=== PATIENT | female | born 1970 | race Caucasian/White ===

== ENCOUNTER → 2016-09-23 | Emergency (ER) | payer OTHER ==
[~2016-09-23] MED LIST: DEXTROSE 5%-0.45% SALINE 1,000 ML IV SCH; OXYCODONE/APAP 5/325MG COMBO TABLET PO ONE; SODIUM CHLORIDE 1,000 ML IV SCH; VANCOMYCIN 1 GRAM (PRE-DOCKED) 250 ML IVPB ONE; VANCOMYCIN 1,000 MG in DEXTROSE 5%-WATER - 250 ML IVPB ONE; morphine CARPU-JECT 4 MG/1 ML DISP.SYRIN IVPUSH ONE; morphine CARPU-JECT 4 MG/1 ML DISP.SYRIN IVPUSH PRN; morphine CARPU-JECT 4 MG/1 ML DISP.SYRIN ONE
[2016-09-23 17:11] VITALS: BMI 28.3
--- NOTE | 2016-09-23 18:23 | PDOC ---
History of Present Illness - General History Source: Patient, Old Records Exam Limitations: No Limitations - History of Present Illness Initial Comments: 09/23/16 18:44 The patient is a 46 year old female, with a significant past medical history of MRSA and anxiety, who presents to the emergency department with an abscess of the right axilla and an abscess of the left antecubital fossa for the past 2 days. The patient states that the abscesses have become increasingly painful, worst an hour prior to presentation to the ED. She presents to the ED now because the pain has become too unbearable. The patient states that she has had abscesses in the past, but states that she does not know why she keeps experiencing recurrent abscesses. The patient denies fever, chills, nausea, vomiting, diarrhea or dysuria. Allergies: Celecoxib Past Surgical History: Appendectomy (1999). Social History: Current everyday smoker. History of previous drug use (heroin, benzodiazepines). PCP: Dr. Viveros <Judith Olivares - Last Filed: 09/23/16 21:22> <Johnathan Bass - Last Filed: 09/24/16 15:59> - General Chief Complaint: Abscess Boil Stated Complaint: ABCESS Past History <Jduith Olivares - Last Filed: 09/23/16 21:22> - Past Medical History Asthma: No Cardiac Disorders: No COPD: No Diabetes: No GI Disorders: No Disorders: No HTN: No Kidney Stones: Yes (1998) Psychiatric Problems: Yes (anxiety) Suicide Attempt (Hx): No Seizures: No Other medical history: mrsa - Surgical History Abdominal Surgery: No Appendectomy: Yes (1999) Cardiac Surgery: No Cholecystectomy: No Lung Surgery: No Neurologic Surgery: No Orthopedic Surgery: No - Reproductive History PID: No - Immunization History Immunization Up to Date: Yes - Psycho/Social/Smoking Cessation Hx Anxiety: Yes Suicidal Ideation: No Smoking History: Current every day smoker Have you smoked in the past 12 months: Yes Number of Cigarettes Smoked Daily: 20 Information on smoking cessation initiated: No 'Breaking Loose' booklet given: 07/26/16 Hx Alcohol Use: No Drug/Substance Use Hx: No Substance Use Type: Heroin, Tranquilizers Hx Substance Use Treatment: No <Johnathan Bass - Last Filed: 09/24/16 15:59> - Past Medical History Allergies/Adverse Reactions: Allergies Allergy/AdvReac Type Severity Reaction Status Date / Time celecoxib [From Celebrex] Allergy Severe Hives Verified 09/23/16 17:07 Home Medications: Ambulatory Orders Clindamycin [Cleocin -] 300 mg PO TID #21 capsule 09/23/16 Oxycodone HCl/Acetaminophen [Percocet 5-325 mg Tablet] 1 - 2 tab PO Q6H PRN #20 tab MDD 8 09/23/16 Sulfamethoxazole/Trimethoprim [Bactrim Ds -] 1 tab PO BID #10 tablet 09/24/16 Review of Systems - Review of Systems Able to Perform ROS?: Yes Comments:: 09/23/16 18:30 GENERAL/CONSTITUTIONAL: No fever or chills. No weakness. HEAD, EYES, EARS, NOSE AND THROAT: No change in vision. No ear pain or discharge. No sore throat. CARDIOVASCULAR: No chest pain or shortness of breath. RESPIRATORY: No cough, wheezing, or hemoptysis. GASTROINTESTINAL: No nausea, vomiting, diarrhea or constipation. GENITOURINARY: No dysuria, frequency, or change in urination. MUSCULOSKELETAL: No joint or muscle swelling or pain. No neck or back pain. SKIN: +Abscess of the right axilla, abscess of the left antecubital fossa. NEUROLOGIC: No headache, vertigo, loss of consciousness, or change in strength/ sensation. ENDOCRINE: No increased thirst. No abnormal weight change. HEMATOLOGIC/LYMPHATIC: No anemia, easy bleeding, or history of blood clots. ALLERGIC/IMMUNOLOGIC: No hives or skin allergy. <Judith Olivares - Last Filed: 09/23/16 21:22> *Physical Exam - Vital Signs Last Vital Signs Temp Pulse Resp BP Pulse Ox 98 F 115 H 20 132/80 97 09/23/16 17:09 09/23/16 17:09 09/23/16 17:09 09/23/16 17:09/23/16 17:09 - Physical Exam Comments: 09/23/16 18:54 GENERAL: Awake, alert, and fully oriented, in no acute distress. HEAD: No signs of trauma. EYES: PERRLA, EOMI, sclera anicteric, conjunctiva clear. ENT: Auricles normal inspection, hearing grossly normal, nares patent, oropharynx clear without exudates. Moist mucosa. NECK: Normal ROM, supple, no lymphadenopathy, JVD, or masses. LUNGS: Breath sounds equal, clear to auscultation bilaterally. No wheezes, and no crackles. HEART: Regular rate and rhythm, normal S1 and S2, no murmurs, rubs or gallops. ABDOMEN: Soft, nontender, normoactive bowel sounds. No guarding, no rebound. No masses. EXTREMITIES: Normal range of motion, no edema. No clubbing or cyanosis. No cords , erythema, or tenderness. NEUROLOGICAL: Cranial nerves II through XII grossly intact. Normal speech, normal gait. SKIN: Left antecubital fossa, there is an area of induration and tenderness, no fluctuance. Right axilla, there is an area of induration and tenderness, no fluctuance. <Judith Olivares - Last Filed: 09/23/16 21:22> - Vital Signs Last Vital Signs Temp Pulse Resp BP Pulse Ox 98 F 115 H 20 132/80 97 09/23/16 17:09 09/23/16 17:09 09/23/16 17:09 09/23/16 17:09 09/23/16 17:09 <Johnathan Bass - Last Filed: 09/24/16 15:59> ED Treatment Course - LABORATORY CBC & Chemistry Diagram: 09/23/16 19:20 09/23/16 19:20 <Judith Olivares - Last Filed: 09/23/16 21:22> - LABORATORY CBC & Chemistry Diagram: 09/23/16 19:20 09/23/16 19:20 - RADIOLOGY Comments: Patient is refusing admission but wants the proceedure. <Johnathan Bass - Last Filed: 09/24/16 15:59> Medical Decision Making - Medical Decision Making 09/23/16 21:05 EXAM: US/SOFT TISSUE EXTREMITY US Reviewed By: Dr. Dylan Lino IMPRESSION: Nonspecific complex 1.9 x 1.9 x 1.1 cm left elbow region subcutaneous structure medially as discussed. Ultrasound or CT-guided percutaneous needle aspiration/biopsy may be considered. The right axillary region demonstrates no sonographic pathology. Additional imaging evaluation may be performed as clinically indicated. Case discussed with Dr. Rodriguez (Radiology) at 21:05. Dr. Rodriguez will perform an ultrasound guided aspiration tomorrow morning at 8AM. The patient will be NPO after midnight. The patient is refusing admission at this time. <Judith Olivares - Last Filed: 09/23/16 21:22> *DC/Admit/Observation/Transfer - Attestations Scribe Attestion: 09/23/16 18:26 Documentation prepared by Judith Olivares, acting as medical detail representative for Johnathan Bass MD, /DO. <Judith Olivares - Last Filed: 09/23/16 21:22> - Discharge Dispostion Admit: No <Johnathan Bass - Last Filed: 09/24/16 15:59> Diagnosis at time of Disposition: Abscess of elbow - Discharge Dispostion Disposition: HOME Condition at time of disposition: Improved - Prescriptions Prescriptions: Sulfamethoxazole/Trimethoprim [Bactrim Ds -] 1 tab PO BID #10 tablet Clindamycin [Cleocin -] 300 mg PO TID #21 capsule Oxycodone HCl/Acetaminophen [Percocet 5-325 mg Tablet] 1 - 2 tab PO Q6H PRN #20 tab MDD 8 PRN Reason: Pain - Referrals Referrals: Gali Viveros [Primary Care Provider] - - Patient Instructions Printed Discharge Instructions: DI for Incision and Drainage of a Skin Abscess Additional Instructions: Return to the emergency department immediately with ANY new, persistent or worsening symptoms including any worsening pain, fever/chills redness, or any other concerns. You MUST call and follow up with your doctor within 2-3 days for further evaluation of your symptoms. Results were discussed with you. Please make sure your doctor reviews the results of your emergency evaluation. Print Language: PANAMANIAN
[2016-09-23 19:31] LABS: BASOPHIL 0.8 % (0-2.0); EOSINOPHIL 5.9 % (0-4.5); MCH 29.3 pg (25.7-33.7); MCHC 33.1 g/dl (32.0-36.0); MEAN CELL VOLUME 88.6 fl (80-96); MEAN PLT VOLUME 8.9 fl (7.5-11.1); NEUTROPHILS 52.5 % (42.8-82.8); PLATELET COUNT 282 K/MM3 (134-434); RDW 14.4 % (11.6-15.6)
[2016-09-23 20:06] LABS: ANION GAP 6 (8-16); BILIRUBIN,TOTAL 0.3 mg/dL (0.2-1.0); CALCIUM 9.4 mg/dL (8.5-10.1); CO2 31 mmol/L (21-32); CREATININE 0.6 mg/dL (0.55-1.02); GLUCOSE,RANDOM 91 mg/dL (74-106); SGOT/AST 27 U/L (15-37); SGPT/ALT 44 U/L (12-78); TOT PROT 7.4 g/dl (6.4-8.2)
[2016-09-23 20:07] LABS: ALK PHOS 98 U/L (45-117)
[2016-09-23 21:01] LABS: URINE APPEARANCE CLEAR; URINE BILIRUBIN NEGATIVE (NEGATIVE); URINE COLOR STRAW; URINE GLUCOSE (UA) NEGATIVE (NEGATIVE); URINE KETONE NEGATIVE (NEGATIVE); URINE NITRITE NEGATIVE (NEGATIVE); URINE PROTEIN NEGATIVE (NEGATIVE); URINE UROBILINOGEN NEGATIVE E.U./dl (0.2-1.0)
[2016-09-23 21:02] LABS: URINE BLOOD 1+ (NEGATIVE); URINE LEUK ESTERASE TRACE (NEGATIVE)
[2016-09-23 21:05] LABS: URINE RBC 1 /hpf (0-3); URINE WBC 3 /hpf (3-5)
[2016-09-23 21:10] LABS: URINE MARIJUANA THC NEGATIVE ng/ml (CUTOFF=50)
[2016-09-24 14:22] VITALS: BP 122/82; PULSE 84; TEMP 98.2
--- NOTE | 2016-09-24 15:14 | PDOC ---
*Physical Exam - Vital Signs Last Vital Signs Temp Pulse Resp BP Pulse Ox 98.2 F 84 16 122/82 99 09/24/16 14:21 09/24/16 14:21 09/24/16 14:21 09/24/16 14:21 09/24/16 14:21 ED Treatment Course - LABORATORY CBC & Chemistry Diagram: 09/23/16 19:20 09/23/16 19:20 - ADDITIONAL ORDERS Additional order review: 09/24/16 12:52 Gram Stain - Final Abscess 09/24/16 12:45 ARCELIA Preparation - Preliminary Abscess Fungal Culture - Preliminary 09/23/16 19:20 RBC 4.75 MCV 88.6 MCHC 33.1 RDW 14.4 MPV 8.9 Neutrophils % 52.5 D Lymphocytes % 36.0 D Monocytes % 4.8 Eosinophils % 5.9 H D Basophils % 0.8 - RADIOLOGY Radiology Studies Ordered: Category Date Time Status ABCESS/FLUID DRAIN-SUPERFICIAL [RADS] Stat Radiology 09/24/16 08:54 Ordered Comments: Patient is refusing admission but wants the proceedure. - Medications Given in the ED: ED Medications Discontinued Medications Generic Name Dose Route Start Last Admin Trade Name Freq PRN Reason Stop Dose Admin Vancomycin HCl 1,000 mg/ 250 mls @ 250 mls/hr 09/23/16 20:32 09/23/16 20:57 Dextrose IVPB 09/23/16 21:31 250 mls/hr ONCE ONE Administration Morphine Sulfate 4 mg 09/23/16 18:29 09/23/16 18:56 Morphine Injection - IVPUSH 09/23/16 18:30 4 mg ONCE ONE Administration Morphine Sulfate 4 mg 09/23/16 20:31 09/23/16 20:57 Morphine Injection - IVPUSH 09/23/16 20:32 4 mg ONCE ONE Administration Medical Decision Making - Medical Decision Making 09/24/16 15:14 46y F hx of abscess s/p drainage by IR initially refused admission for further management of her abscess, signed out to me for IR draininage this morning. Pt afebrile. labs unremaabkle. abscess in arm s/p darainage - will dc the pt on bactrim due to her history of mrsa. tylenol for pain management at home. return precautions were discussed. will have her fu with PMD. 09/24/16 15:16 I discussed the physical exam findings, ancillary test results and final diagnoses with the patient. I answered all of the patient's questions. The patient was satisfied with the care received and felt comfortable with the discharge plan and treatment plan. The patient will call their primary care physician within 24 hours to arrange follow-up and will return to the Emergency Department with any new, persistent or worsening symptoms. *DC/Admit/Observation/Transfer Diagnosis at time of Disposition: Abscess of elbow - Discharge Dispostion Disposition: HOME Condition at time of disposition: Improved Admit: No - Prescriptions Prescriptions: Sulfamethoxazole/Trimethoprim [Bactrim Ds -] 1 tab PO BID #10 tablet Clindamycin [Cleocin -] 300 mg PO TID #21 capsule Oxycodone HCl/Acetaminophen [Percocet 5-325 mg Tablet] 1 - 2 tab PO Q6H PRN #20 tab MDD 8 PRN Reason: Pain - Referrals Referrals: Gali Viveros [Primary Care Provider] - - Patient Instructions Printed Discharge Instructions: DI for Incision and Drainage of a Skin Abscess Additional Instructions: Return to the emergency department immediately with ANY new, persistent or worsening symptoms including any worsening pain, fever/chills redness, or any other concerns. You MUST call and follow up with your doctor within 2-3 days for further evaluation of your symptoms. Results were discussed with you. Please make sure your doctor reviews the results of your emergency evaluation. Print Language: IRISH - Post Discharge Activity
--- NOTE | 2016-09-26 10:26 | EKG ---
Test Reason : Blood Pressure : / mmHG Vent. Rate : 077 BPM Atrial Rate : 077 BPM P-R Int : 140 ms QRS Dur : 084 ms QT Int : 374 ms P-R-T Axes : 046 051 050 degrees QTc Int : 423 ms POOR DATA QUALITY, INTERPRETATION MAY BE ADVERSELY AFFECTED NORMAL SINUS RHYTHM POOR R WAVE PROGRESSION ABNORMAL ECG NO PREVIOUS ECGS AVAILABLE Confirmed by KASSIDY MAIN MD ([id number]) on 09/26/2016 10:26:29 AM Referred By: Confirmed By:KASSIDY MIAN MD
== END | disposition home or self-care (01) ==
LOC: JER 16:53
PROC: 3E033NZ Introduction of Analgesics, Hypnotics, Sedatives into Peripheral Vein, Percutaneous Approach (ICD-10-PCS; principal; 2016-09-23)
PROC: 3E033GC Introduction of Other Therapeutic Substance into Peripheral Vein, Percutaneous Approach (ICD-10-PCS; 2016-09-23)
PROC: 0H9CXZZ Drainage of Left Upper Arm Skin, External Approach (ICD-10-PCS; 2016-09-23)
DX: L02.414 Cutaneous abscess of left upper limb (principal); F41.9 Anxiety disorder, unspecified; F17.210 Nicotine dependence, cigarettes, uncomplicated; Z86.14 Personal history of Methicillin resistant Staphylococcus aureus infection
CPT/HCPCS: 36415; 76882; 76942-TC; 80053; 80307; 81003; 81015; 84703; 85025; 87040; 87070; 87075; 87102; 87205; 87210; 93005; 93010; 99284-25

== ENCOUNTER 2016-11-22 15:26 | Emergency (ER) | payer OTHER ==
[2016-11-22 15:32] VITALS: BMI 28.3
[2016-11-22 15:39] VITALS: BP 130/80; PULSE 111; TEMP 97.9
[2016-11-22] MEDS ORDERED: OXYCODONE/APAP 5/325MG COMBO TABLET PO ONE (15:56)
[2016-11-22] MEDS ORDERED: OXYCODONE/APAP 5/325MG COMBO TABLET ONE (16:01)
[2016-11-22] MEDS ORDERED: CLINDAMYCIN HCL 300 MG CAPSULE PO ONE (16:40)
[2016-11-22] MEDS ORDERED: CLINDAMYCIN HCL 150 MG CAPSULE (FP) ONE (16:42)
--- NOTE | 2016-11-22 16:45 | PDOC ---
History of Present Illness - General History Source: Patient Exam Limitations: No Limitations <David Blackwell - Last Filed: 11/22/16 16:48> - General History Source: Patient Exam Limitations: No Limitations - History of Present Illness Initial Comments: 11/22/16 16:54 The patient is a 46 year old female with a significant past medical history of MRSA, who presents to the ED with an abscess on the right groin for the past 2 days. Patient states there is pain localized around the area. Patient states she was here in the past with an abscess under the right armpit, which needed to be drained. <Brendan Santiago - Last Filed: 11/22/16 16:55> - General Chief Complaint: Abscess Boil Stated Complaint: BOIL RIGHT GROIN Time Seen by Provider: 11/22/16 15:41 Past History - Past Medical History Asthma: No Cardiac Disorders: No COPD: No Diabetes: No GI Disorders: No Disorders: No HTN: No Kidney Stones: Yes (1998) Psychiatric Problems: Yes (anxiety,DEPRESSION) Suicide Attempt (Hx): No Seizures: No Other medical history: MRSA - Surgical History Abdominal Surgery: No Appendectomy: Yes (1999) Cardiac Surgery: No Cholecystectomy: No Lung Surgery: No Neurologic Surgery: No Orthopedic Surgery: No - Reproductive History PID: No - Immunization History Immunization Up to Date: Yes - Psycho/Social/Smoking Cessation Hx Anxiety: Yes Suicidal Ideation: No Smoking History: Current every day smoker Have you smoked in the past 12 months: Yes Number of Cigarettes Smoked Daily: 10 Information on smoking cessation initiated: No 'Breaking Loose' booklet given: 07/26/16 Hx Alcohol Use: No Drug/Substance Use Hx: No Substance Use Type: None Hx Substance Use Treatment: No <David Blackwell - Last Filed: 11/22/16 16:48> <Brendan Santiago - Last Filed: 11/22/16 16:55> - Past Medical History Allergies/Adverse Reactions: Allergies Allergy/AdvReac Type Severity Reaction Status Date / Time celecoxib [From Celebrex] Allergy Severe Hives Verified 11/22/16 15:28 Home Medications: Ambulatory Orders Clindamycin [Cleocin -] 300 mg PO Q6HPO #28 capsule 11/22/16 Oxycodone HCl 5 mg PO Q6H PRN #20 tablet MDD 4 11/22/16 Review of Systems - Review of Systems Able to Perform ROS?: Yes Comments:: 11/22/16 16:54 GENERAL/CONSTITUTIONAL: No fever or chills. No weakness. HEAD, EYES, EARS, NOSE AND THROAT: No change in vision. No ear pain or discharge. No sore throat. CARDIOVASCULAR: No chest pain or shortness of breath. RESPIRATORY: No cough, wheezing, or hemoptysis. GASTROINTESTINAL: No nausea, vomiting, diarrhea or constipation. GENITOURINARY: No dysuria, frequency, or change in urination. MUSCULOSKELETAL: No joint or muscle swelling or pain. No neck or back pain. SKIN:+ abscess on the right groin. NEUROLOGIC: No headache, vertigo, loss of consciousness, or change in strength/ sensation. ENDOCRINE: No increased thirst. No abnormal weight change. HEMATOLOGIC/LYMPHATIC: No anemia, easy bleeding, or history of blood clots. ALLERGIC/IMMUNOLOGIC: No hives or skin allergy. <Brendan Santiago - Last Filed: 11/22/16 16:55> *Physical Exam - Vital Signs Last Vital Signs Temp Pulse Resp BP Pulse Ox 97.9 F 111 H 18 130/80 100 11/22/16 15:30 11/22/16 15:30 11/22/16 15:30 11/22/16 15:30 11/22/16 15:30 <David Blackwell - Last Filed: 11/22/16 16:48> - Vital Signs Last Vital Signs Temp Pulse Resp BP Pulse Ox 97.9 F 111 H 18 130/80 100 11/22/16 15:30 11/22/16 15:30 11/22/16 15:30 11/22/16 15:30 11/22/16 15:30 - Physical Exam Comments: 11/22/16 16:54 GENERAL: Awake, alert, and fully oriented, in no acute distress HEAD: No signs of trauma EYES: PERRLA, EOMI, sclera anicteric, conjunctiva clear ENT: Auricles normal inspection, hearing grossly normal, nares patent, oropharynx clear without exudates. Moist mucosa NECK: Normal ROM, supple, no lymphadenopathy, JVD, or masses LUNGS: Breath sounds equal, clear to auscultation bilaterally. No wheezes, and no crackles HEART: Regular rate and rhythm, normal S1 and S2, no murmurs, rubs or gallops ABDOMEN: Soft, nontender, normoactive bowel sounds. No guarding, no rebound. No masses EXTREMITIES: Normal range of motion, no edema. No clubbing or cyanosis. No cords, erythema, or tenderness NEUROLOGICAL: Cranial nerves II through XII grossly intact. Normal speech, normal gait SKIN: 4 x 4cm induration and erythema, no fluctuations. Warm, Dry, normal turgor. <Brendan Santiago - Last Filed: 11/22/16 16:55> ED Treatment Course - Medications Given in the ED: ED Medications Discontinued Medications Generic Name Dose Route Start Last Admin Trade Name Freq PRN Reason Stop Dose Admin Oxycodone/Acetaminophen 2 combo 11/22/16 15:56 11/22/16 16:04 Percocet 5/325 - PO 11/22/16 15:57 2 combo ONCE ONE Administration <David Blackwell - Last Filed: 11/22/16 16:48> - Medications Given in the ED: ED Medications Discontinued Medications Generic Name Dose Route Start Last Admin Trade Name Freq PRN Reason Stop Dose Admin Oxycodone/Acetaminophen 2 combo 11/22/16 15:56 11/22/16 16:04 Percocet 5/325 - PO 11/22/16 15:57 2 combo ONCE ONE Administration <Brendan Santiago - Last Filed: 11/22/16 16:55> Medical Decision Making - Medical Decision Making 11/22/16 16:49 A portion of this note was documented by scribe services under my direction. I have reviewed the details of the note, within reason, and agree with the documentation with the following case summary and management plan written by me. Patient treated in the ED. Nursing notes are reviewed and incorporated into the medical decision-making. Vital signs reviewed. Peripheral IV access obtained by the nurse, laboratory studies are drawn and sent, reviewed and interpreted by myself. Vital Signs Temp Pulse Resp BP Pulse Ox 97.9 F 111 H 18 130/80 100 11/22/16 15:30 11/22/16 15:30 11/22/16 15:30 11/22/16 15:30 11/22/16 15:30 46-year-old female with past medical history of MRSA and recurrent abscesses presents with right inguinal groin pain. Patient noted in the last several days of erythema and induration and mild drainage. Denies fevers. She reports that the pain is severe and feels like her prior abscesses. Bedside ultrasound was performed and demonstrated no discrete abscesses to be drained at this time. However, the skin itself appears to be cellulitis in his characteristc of MRSA. We'll initiate Clindamycin and have the patient evaluated her wound in 48-72 hours. I instructed her that if the redness worsens or if she notices much more drainage, she should return to the ER for further evaluation. Patient verbalized understanding agrees with plan. She will go home with her . I discussed the physical exam findings, ancillary test results and final diagnoses with the patient. I answered all of the patient's questions. The patient was satisfied with the care received and felt comfortable with the discharge plan and treatment plan. The patient will call their primary care physician within 24 hours to arrange follow-up and will return to the Emergency Department with any new, persistant or worsening symptoms. <David Blackwell - Last Filed: 11/22/16 16:48> *DC/Admit/Observation/Transfer - Discharge Dispostion Admit: No <David Blackwell - Last Filed: 11/22/16 16:48> - Attestations Scribe Attestion: 11/22/16 16:55 Documentation prepared by Brendan Santiago, acting as certified medical transcriptionist for David Blackwell MD, . <Brendan Santiago - Last Filed: 11/22/16 16:55> Diagnosis at time of Disposition: Cellulitis Qualifiers: Site of cellulitis: trunk Site of cellulitis of trunk: groin Qualified Code(s) : L03.314 - Cellulitis of groin - Discharge Dispostion Disposition: HOME Condition at time of disposition: Stable - Prescriptions Prescriptions: Clindamycin [Cleocin -] 300 mg PO Q6HPO #28 capsule Oxycodone HCl 5 mg PO Q6H PRN #20 tablet MDD 4 PRN Reason: Pain - Referrals Referrals: Hoang Mijares MD [Staff Physician] - - Patient Instructions Printed Discharge Instructions: DI for Cellulitis -- Adult Additional Instructions: At this time, the ultrasound demonstrated no discrete abscess to be drained at this time. However, please continue to light wound to drain area it is important that you continue to take the antibiotics, clindamycin, reviewed 300 mg every 6 hours for the next week. In 48-72 hours, if he noticed that the wound is not improving or is worsening, please return to the emergency department for further evaluation. You may take a tablet of oxycodone every 6 hours as needed for pain. Please do not drink or drive on this medication as this medication can cause drowsiness. Given your repeated history of skin infections, please make an appointment with an infectious disease specialist. Call to schedule appointment.
== END 2016-11-22 16:54 | disposition home or self-care (01) ==
LOC: FER 15:26
DX: L03.314 Cellulitis of groin (principal); F41.8 Other specified anxiety disorders; Z86.14 Personal history of Methicillin resistant Staphylococcus aureus infection; Z87.442 Personal history of urinary calculi; F17.210 Nicotine dependence, cigarettes, uncomplicated
CPT/HCPCS: 99281-25

== ENCOUNTER 2017-11-18 09:16 | Inpatient (IN) | payer OTHER ==
[2017-11-18 13:49] VITALS: BMI 31.8
--- NOTE | 2017-11-18 14:27 | HP ---
COWS - Scale Resting Pulse: 0= [place] 80 or Below Sweatin=Flushed/Facial Moisture Restless Observation: 3= Extraneous Movement Pupil Size: 2= Moderately Dilated Bone or Joint Aches: 2= Severe Diffuse Aches Runny Nose/ Eye Tearin= Runny Nose/Eyes GI Upset > 30mins: 3= Vomiting/Diarrhea Tremor Observation: 2= Slight Tremor Visible Yawning Observation: 2= >3x During Session Anxiety or Irritability: 2=Irritable/Anxious Goose Flesh Skin: 0=Smooth Skin COWS Score: 20 Admission ROS S - HPI Chief Complaint: I NEED HELP TO STOP USING HEROIN ALSO XANAX Allergies/Adverse Reactions: Allergies Allergy/AdvReac Type Severity Reaction Status Date / Time celecoxib [From Celebrex] Allergy Severe Hives Verified 11/18/17 14:10 History of Present Illness: THIS 47 YEARS OLD FEMALE WITH HEROIN DEPENDENCE,XANAX DEPENDENCE,SEEKING DETOX, WITHDRAWAL SYMPTOM,LAST DETOX [facility] 2011 NO MAJOR MEDICAL PROBLEM BIPOLAR DISORDER,PANIC ATTACK SOBRIETY PERIOD 6 YEARS Exam Limitations: No Limitations - Ebola screening Have you traveled outside of the country in the last 21 days: No Have you had contact with anyone from an Ebola affected area: No Have you been sick,other than usual withdrawal symptoms: No Do you have a fever: No - Review of Systems Constitutional: Chills, Diaphoresis, Loss of Appetite, Malaise, Night Sweats, Weakness EENT: reports: Tearing, Nose Congestion Respiratory: reports: No Symptoms reported, Wheezing Cardiac: reports: No Symptoms Reported GI: reports: Diarrhea, Nausea, Vomiting, Abdominal cramping : reports: No Symptoms Reported Musculoskeletal: reports: Back Pain, Joint Pain, Muscle Pain, Neck Pain Integumentary: reports: Dryness Neuro: reports: Headache, Tremors Endocrine: reports: No Symptoms Reported Hematology: reports: No Symptoms Reported Psychiatric: reports: No Sypmtoms Reported, Judgement Intact, Mood/Affect Appropiate, Orientated x3, other (BIPOLAR ,PANIC ATTACK) Patient History - Patient Medical History Hx Anemia: No Hx Asthma: No Hx Chronic Obstructive Pulmonary Disease (COPD): No Hx Cancer: No Hx Cardiac Disorders: No Hx Hypertension: No Hx Hypercholesterolemia: No Hx Pacemaker: No HX Cerebrovascular Accident: No Hx Seizures: No Hx Dementia: No Hx Diabetes: No Hx Gastrointestinal Disorders: No Hx Liver Disease: No Hx Genitourinary Disorders: No Hx Sexually Transmitted Disorders: No Hx Renal Disease (ESRD): No Hx Thyroid Disease: No Hx Human Immunodeficiency Virus (HIV): No (LAST 2013) Hx Hepatitis C: No Hx Depression: No Hx Suicide Attempt: Yes (OVERDOSE 2011) Hx Bipolar Disorder: Yes (PANICK ATTACK) Hx Schizophrenia: No Other Medical History: NO SUICDAL,NO HOMICIDAL - Patient Surgical History Past Surgical History: No Hx Neurologic Surgery: No Hx Cataract Extraction: No Hx Cardiac Surgery: No Hx Lung Surgery: No Hx Breast Surgery: No Hx Breast Biopsy: No Hx Abdominal Surgery: No Hx Appendectomy: Yes (1999) Hx Cholecystectomy: No Hx Genitourinary Surgery: No Hx Section: Yes Hx Orthopedic Surgery: No Anesthesia Reaction: No - PPD History Previous Implant?: Yes Documented Results: Negative w/o proof Implanted On Prior [facility] Admission?: Yes Date: 07/20/12 PPD to be Administered?: Yes - Reproductive History Patient is a Female of Child Bearing Age (11 -55 yrs old): Yes Last Menstrual Period: 01/19/12 Patient : No - Smoking Cessation Smoking history: Current every day smoker Have you smoked in the past 12 months: Yes Aproximately how many cigarettes per day: 10 Hx Chewing Tobacco Use: Yes Initiated information on smoking cessation: Yes 'Breaking Loose' booklet given: 11/18/17 - Substance & Tx. History Hx Alcohol Use: No Hx Substance Use: Yes Substance Use Type: Heroin, Tranquilizers Hx Substance Use Treatment: Yes ([facility] 2011) - Substances Abused Heroin Route: Inhalation Frequency: Daily Amount used: 10 BAGS Age of first use: 36 Date of Last Use: 11/17/17 Alprazolam (Xanax) Route: Oral Frequency: Daily Amount used: 4MG Age of first use: 31 Date of Last Use: 11/17/17 Family Disease History - Family Disease History Family Disease History: Other: Father (DSA,HIV,), Mother (DSA) Admission Physical Exam S - Vital Signs Vital Signs: Vital Signs - 24 hr 11/18/17 13:43 Temperature 96.7 F L Pulse Rate 80 Respiratory 16 Rate Blood Pressure 120/86 - Physical General Appearance: Yes: Moderate Distress, Tremorous, Irritable, Sweating, Anxious HEENTM: Yes: Normal ENT Inspection, [place], Pharynx Normal Respiratory: Yes: Lungs Clear, Normal Breath Sounds, No Respiratory Distress Neck: Yes: Within Normal Limits, Supple, Trachea in good position Breast: Yes: Breast Exam Deferred Cardiology: Yes: Within Normal Limits, Regular Rhythm, Regular Rate, S1, S2 Abdominal: Yes: Within Normal Limits, Normal Bowel Sounds, Non Tender, Soft Genitourinary: Yes: Within Normal Limits Back: Yes: Muscle Spasm Musculoskeletal: Yes: full range of Motion, Back pain, Joint Stiffness, Muscle Pain Extremities: Yes: Normal Range of Motion, Tremors Neurological: Yes: civil structural engineer II-XII NML intact, Fully Oriented, Alert, Motor Strength 5/5 Integumentary: Yes: Dry, Track Che Lymphatic: Yes: Within Normal Limits - Diagnostic (1) Opioid dependence with withdrawal Status: Acute (2) Nicotine dependence Status: Acute Qualifiers: Nicotine product type: cigarettes Substance use status: in withdrawal Qualified Code(s): F17.213 - Nicotine dependence, cigarettes, with withdrawal (3) Bipolar disorder Status: Acute (4) Panic attack Status: Acute Cleared for Admission [facility] - Detox or Rehab [facility] Level of Care: Medically Managed Detox Regimen/Protocol: Methadone [facility] Breath Alcohol Content Breath Alcohol Content: 0 Urine Pregancy Test - Result Urine Test Results: Negative- NO Line Present Urine Drug Screen - Results Drug Screen Negative: No Urine Drug Screen Results: OPI-Opiates
[2017-11-18] MEDS ORDERED: ALBUTEROL SO4 18 GM HFA INHALER IH PRN (14:44)
[2017-11-18] MEDS ORDERED: ACETAMINOPHEN 325 MG TABLET (FP) PO PRN (17:10)
[2017-11-18] MEDS ORDERED: MENTHOL/PHENOL 1 EACH UD MM PRN (17:10)
[2017-11-18] MEDS ORDERED: MAGNESIUM CITRATE 300 ML BOTTLE PO PRN (17:10)
[2017-11-18] MEDS ORDERED: MAG HYDROX/AL HYDROX/SIMETH 30 ML UNIT-DOSE CUP PO PRN (17:10)
[2017-11-18] MEDS ORDERED: P-EPHED 60MG/TRIPROLIDI 2.5MG TABLET PO PRN (17:10)
[2017-11-18] MEDS ORDERED: guaiFENesin/D-METHORPHAN HB 10 ML UNIT-DOSE CUPS PO PRN (17:10)
[2017-11-18] MEDS ORDERED: MAGNESIUM HYDROX 2400MG/30ML ORAL SUSPENSION 30 ML CUP PO PRN (17:10)
[2017-11-18] MEDS ORDERED: LOPERAMIDE HCL 2 MG CAPSULE PO PRN (17:10)
[2017-11-18] MEDS: CYCLOBENZAPRINE HCL 10 MG TABLET (FP) PO PRN ×2 (17:46→22:50)
[2017-11-18] MEDS: diazePAM 5 MG TABLET PO PRN ×2 (17:46→22:50)
[2017-11-18] MEDS ORDERED: METHADONE HCL 10 MG TABLET (FOR DETOX USE ONLY) PO ONE ×2 (18:00→23:00)
[2017-11-18] MEDS: MELATONIN 5 MG TABLETS PO PRN (22:50)
[2017-11-18] MEDS: cloNIDine HCL 0.1 MG TABLET PO SCH (22:50)
[2017-11-18] MEDS: THIAMINE HCL 100 MG TABLET (FP) PO SCH (22:50)
[2017-11-19 01:25] LABS: URINE APPEARANCE CLOUDY; URINE BILIRUBIN NEGATIVE (<2.0 mg/dL); URINE BLOOD 1+ (NEGATIVE); URINE COLOR YELLOW; URINE GLUCOSE (UA) NEGATIVE (NEGATIVE); URINE KETONE NEGATIVE (NEGATIVE); URINE LEUK ESTERASE NEGATIVE (NEGATIVE); URINE NITRITE NEGATIVE (NEGATIVE); URINE PROTEIN NEGATIVE (NEGATIVE); URINE UROBILINOGEN NEGATIVE mg/dL (0.2-1.0)
[2017-11-19 01:55] LABS: CALCIUM OXALATE CRYSTALS FEW /hpf (NONE SEEN); EPI CELLS MANY /HPF (FEW); URINE BACTERIA RARE /hpf (NONE SEEN)
[2017-11-19] MEDS ORDERED: METHADONE HCL 10 MG TABLET (FOR DETOX USE ONLY) PO ONE (10:00)
[2017-11-19] MEDS: cloNIDine HCL 0.1 MG TABLET PO SCH ×2 (11:01→22:23)
[2017-11-19] MEDS: PRENATAL VITAMINS W/ FOLIC ACID TABLET (FP) PO SCH (11:01)
[2017-11-19] MEDS: diazePAM 5 MG TABLET PO PRN ×2 (11:04→18:53)
[2017-11-19 11:16] LABS: HEMOGLOBIN 13.5 GM/dL (10.7-15.3); MCH 29.7 pg (25.7-33.7); MCHC 32.8 g/dl (32.0-36.0); MEAN CELL VOLUME 90.5 fl (80-96); MEAN PLT VOLUME 9.6 fl (7.5-11.1); PLATELET COUNT 277 K/MM3 (134-434); RBC 4.53 M/mm3 (3.60-5.2); RDW 14.2 % (11.6-15.6); WHITE BLOOD COUNT 7.1 K/mm3 (4.0-10.0)
[2017-11-19 11:35] LABS: CHLORIDE 103 mmol/L (98-107); POTASSIUM 4.7 mmol/L (3.5-5.1); SODIUM 140 mmol/L (136-145)
--- NOTE | 2017-11-19 11:39 | EKG ---
Test Reason : Blood Pressure : / mmHG Vent. Rate : 065 BPM Atrial Rate : 065 BPM P-R Int : 148 ms QRS Dur : 086 ms QT Int : 390 ms P-R-T Axes : 001 051 027 degrees QTc Int : 405 ms NORMAL SINUS RHYTHM WITH SINUS ARRHYTHMIA NORMAL ECG WHEN COMPARED WITH ECG OF 24-SEP-2016 00:11, NO SIGNIFICANT CHANGE WAS FOUND Confirmed by LUCIA SAWANT, GUANAKITO ([id number]) on 11/19/2017 11:38:32 AM Referred By: Confirmed By:GUANAKITO MYERS MD
[2017-11-19 12:02] LABS: ALBUMIN 4.1 g/dl (3.4-5.0); ANION GAP 8 (8-16); BILIRUBIN,TOTAL 0.1 mg/dL (0.2-1.0); BLOOD UREA NITROGEN 12 mg/dL (7-18); CALCIUM 9.7 mg/dL (8.5-10.1); CO2 29 mmol/L (21-32); CREATININE 0.6 mg/dL (0.55-1.02); GLUCOSE,RANDOM 100 mg/dL (74-106); SGOT/AST 19 U/L (15-37); SGPT/ALT 20 U/L (12-78); TOT PROT 7.6 g/dl (6.4-8.2)
[2017-11-19 12:13] LABS: ALK PHOS 94 U/L (45-117)
--- NOTE | 2017-11-19 15:30 | PN ---
S COWS - Scale Resting Pulse: 0= [place] 80 or Below Sweatin= Chills/Flushing Restless Observation: 1= Difficult to Sit Still Pupil Size: 0= Normal to Room Light Bone or Joint Aches: 2= Severe Diffuse Aches Runny Nose/ Eye Tearin= Nasal Congestion GI Upset > 30mins: 2= Nausea/Diarrhea Tremor Observation of Outstretched Hands: 2= Slight Tremor Visible Yawning Observation: 0= None Anxiety or Irritability: 2=Irritable/Anxious Goose Flesh Skin: 3=Piloerection COWS Score: 14 S Progress Note (SOAP) Subjective: Tremors, chills, abdominal cramps, sleep interruption Objective: 11/19/17 15:29 Vital Signs - 8 hr 11/19/17 10:00 Temperature 98.9 F Pulse Rate 77 Respiratory 20 Rate Blood Pressure 132/82 Laboratory Last Values WBC 7.1 K/mm3 (4.0-10.0) D 11/19/17 06:00 RBC 4.53 M/mm3 (3.60-5.2) 11/19/17 06:00 Hgb 13.5 GM/dL (10.7-15.3) 11/19/17 06:00 Hct 41.0 % (32.4-45.2) 11/19/17 06:00 MCV 90.5 fl (80-96) 11/19/17 06:00 MCH 29.7 pg (25.7-33.7) 11/19/17 06:00 MCHC 32.8 g/dl (32.0-36.0) 11/19/17 06:00 RDW 14.2 % (11.6-15.6) 11/19/17 06:00 Plt Count 277 K/MM3 (134-434) 11/19/17 06:00 MPV 9.6 fl (7.5-11.1) 11/19/17 06:00 Sodium 140 mmol/L (136-145) 11/19/17 06:00 Potassium 4.7 mmol/L (3.5-5.1) 11/19/17 06:00 Chloride 103 mmol/L (98-107) 11/19/17 06:00 Carbon Dioxide 29 mmol/L (21-32) 11/19/17 06:00 Anion Gap 8 (8-16) 11/19/17 06:00 BUN 12 mg/dL (7-18) 11/19/17 06:00 Creatinine 0.6 mg/dL (0.55-1.02) 11/19/17 06:00 Creat Clearance w eGFR > 60 (>60) 11/19/17 06:00 Random Glucose 100 mg/dL (74-106) 11/19/17 06:00 Calcium 9.7 mg/dL (8.5-10.1) 11/19/17 06:00 Total Bilirubin 0.1 mg/dL (0.2-1.0) L D 11/19/17 06:00 AST 19 U/L (15-37) 11/19/17 06:00 ALT 20 U/L (12-78) 11/19/17 06:00 Alkaline Phosphatase 94 U/L (45-117) 11/19/17 06:00 Total Protein 7.6 g/dl (6.4-8.2) 11/19/17 06:00 Albumin 4.1 g/dl (3.4-5.0) 11/19/17 06:00 Urine Color Yellow 11/19/17 00:05 Urine Appearance Cloudy 11/19/17 00:05 Urine pH 6.0 (5.0-8.0) 11/19/17 00:05 Ur Specific [place] 1.014 (1.001-1.035) 11/19/17 00:05 Urine Protein Negative (NEGATIVE) 11/19/17 00:05 Urine Glucose (UA) Negative (NEGATIVE) 11/19/17 00:05 Urine Ketones Negative (NEGATIVE) 11/19/17 00:05 Urine Blood 1+ (NEGATIVE) H 11/19/17 00:05 Urine Nitrite Negative (NEGATIVE) 11/19/17 00:05 Urine Bilirubin Negative (<2.0 mg/dL) 11/19/17 00:05 Urine Urobilinogen Negative mg/dL (0.2-1.0) 11/19/17 00:05 Ur Leukocyte Esterase Negative (NEGATIVE) 11/19/17 00:05 Urine WBC (Auto) 2 /hpf (3-5) 11/19/17 00:05 Urine RBC (Auto) 29 /hpf (0-3) 11/19/17 00:05 Ur Epithelial Cells Many /HPF (FEW) 11/19/17 00:05 Calcium Oxalate Crystal Few /hpf (NONE SEEN) 11/19/17 00:05 Urine Bacteria Rare /hpf (NONE SEEN) 11/19/17 00:05 Labs noted Assessment: 11/19/17 15:29 Withdrawal sx Plan: Continue detox
[2017-11-19] MEDS: THIAMINE HCL 100 MG TABLET (FP) PO SCH (22:23)
[2017-11-19] MEDS: hydrOXYzine PAMOATE 50 MG CAPSULE (FP) PO PRN (22:26)
[2017-11-19] MEDS: CYCLOBENZAPRINE HCL 10 MG TABLET (FP) PO PRN (22:26)
[2017-11-19] MEDS: MELATONIN 5 MG TABLETS PO PRN (22:26)
[2017-11-20] MEDS: diazePAM 5 MG TABLET PO PRN ×4 (04:36→22:42)
[2017-11-20] MEDS ORDERED: METHADONE HCL 5 MG TABLET (FOR DETOX USE ONLY) PO ONE (10:00)
[2017-11-20] MEDS: cloNIDine HCL 0.1 MG TABLET PO SCH ×2 (10:48→22:43)
[2017-11-20] MEDS: PRENATAL VITAMINS W/ FOLIC ACID TABLET (FP) PO SCH (10:49)
--- NOTE | 2017-11-20 10:51 | PN ---
BHS COWS - Scale Resting Pulse: 0= [place] 80 or Below Sweatin= Chills/Flushing Restless Observation: 1= Difficult to Sit Still Pupil Size: 2= Moderately Dilated Bone or Joint Aches: 2= Severe Diffuse Aches Runny Nose/ Eye Tearin= Nasal Congestion GI Upset > 30mins: 1= Stomach Cramp Tremor Observation of Outstretched Hands: 1= Tremor [place], Not Seen Yawning Observation: 2= >3x During Session Anxiety or Irritability: 2=Irritable/Anxious Goose Flesh Skin: 0=Smooth Skin COWS Score: 13 BHS Progress Note (SOAP) Subjective: joint pain body ache sweat gi upset anxiety restlessness Objective: 11/20/17 10:49 Vital Signs Temperature 97.7 F 11/20/17 06:00 Pulse Rate 51 L 11/20/17 06:00 Respiratory Rate 18 11/20/17 06:00 Blood Pressure 91/66 11/20/17 06:00 O2 Sat by Pulse Oximetry (%) Laboratory Last Values WBC 7.1 K/mm3 (4.0-10.0) D 11/19/17 06:00 RBC 4.53 M/mm3 (3.60-5.2) 11/19/17 06:00 Hgb 13.5 GM/dL (10.7-15.3) 11/19/17 06:00 Hct 41.0 % (32.4-45.2) 11/19/17 06:00 MCV 90.5 fl (80-96) 11/19/17 06:00 MCH 29.7 pg (25.7-33.7) 11/19/17 06:00 MCHC 32.8 g/dl (32.0-36.0) 11/19/17 06:00 RDW 14.2 % (11.6-15.6) 11/19/17 06:00 Plt Count 277 K/MM3 (134-434) 11/19/17 06:00 MPV 9.6 fl (7.5-11.1) 11/19/17 06:00 Sodium 140 mmol/L (136-145) 11/19/17 06:00 Potassium 4.7 mmol/L (3.5-5.1) 11/19/17 06:00 Chloride 103 mmol/L (98-107) 11/19/17 06:00 Carbon Dioxide 29 mmol/L (21-32) 11/19/17 06:00 Anion Gap 8 (8-16) 11/19/17 06:00 BUN 12 mg/dL (7-18) 11/19/17 06:00 Creatinine 0.6 mg/dL (0.55-1.02) 11/19/17 06:00 Creat Clearance w eGFR > 60 (>60) 11/19/17 06:00 Random Glucose 100 mg/dL (74-106) 11/19/17 06:00 Calcium 9.7 mg/dL (8.5-10.1) 11/19/17 06:00 Total Bilirubin 0.1 mg/dL (0.2-1.0) L D 11/19/17 06:00 AST 19 U/L (15-37) 11/19/17 06:00 ALT 20 U/L (12-78) 11/19/17 06:00 Alkaline Phosphatase 94 U/L (45-117) 11/19/17 06:00 Total Protein 7.6 g/dl (6.4-8.2) 11/19/17 06:00 Albumin 4.1 g/dl (3.4-5.0) 11/19/17 06:00 Urine Color Yellow 11/19/17 00:05 Urine Appearance Cloudy 11/19/17 00:05 Urine pH 6.0 (5.0-8.0) 11/19/17 00:05 Ur Specific [place] 1.014 (1.001-1.035) 11/19/17 00:05 Urine Protein Negative (NEGATIVE) 11/19/17 00:05 Urine Glucose (UA) Negative (NEGATIVE) 11/19/17 00:05 Urine Ketones Negative (NEGATIVE) 11/19/17 00:05 Urine Blood 1+ (NEGATIVE) H 11/19/17 00:05 Urine Nitrite Negative (NEGATIVE) 11/19/17 00:05 Urine Bilirubin Negative (<2.0 mg/dL) 11/19/17 00:05 Urine Urobilinogen Negative mg/dL (0.2-1.0) 11/19/17 00:05 Ur Leukocyte Esterase Negative (NEGATIVE) 11/19/17 00:05 Urine WBC (Auto) 2 /hpf (3-5) 11/19/17 00:05 Urine RBC (Auto) 29 /hpf (0-3) 11/19/17 00:05 Ur Epithelial Cells Many /HPF (FEW) 11/19/17 00:05 Calcium Oxalate Crystal Few /hpf (NONE SEEN) 11/19/17 00:05 Urine Bacteria Rare /hpf (NONE SEEN) 11/19/17 00:05 RPR Titer Nonreactive (NONREACTIVE) 11/19/17 06:00 lab noted increase oral fluid Assessment: 11/20/17 10:50 withdrawal sx Plan: continue detox
[2017-11-20] MEDS: hydrOXYzine PAMOATE 50 MG CAPSULE (FP) PO PRN (22:40)
[2017-11-20] MEDS: THIAMINE HCL 100 MG TABLET (FP) PO SCH (22:40)
[2017-11-20] MEDS: CYCLOBENZAPRINE HCL 10 MG TABLET (FP) PO PRN (22:40)
[2017-11-21] MEDS: diazePAM 5 MG TABLET PO PRN ×2 (05:22→10:39)
--- NOTE | 2017-11-21 09:15 | CONSULT ---
[facility] Psychiatric Consult - Data Date of interview: 11/21/17 Admission source: [facility] Identifying data: This is 47 years old female, single mother of two, unemployed , on PA, living with family, with second admission to [facility], with psychiatric hospitalization history, is here seeking for detoxification due to withdrawal symptoms after abusing: Heroin, Xanax and nicotiine. Substance Abuse History: Smoking history: Current every day smoker. Have you smoked in the past 12 months: Yes. Aproximately how many cigarettes per day: 10. Hx Chewing Tobacco Use: Yes. Initiated information on smoking cessation: Yes. 'Breaking Loose' booklet given: 11/18/17. - Substance & Tx. History. Hx Alcohol Use: No. Hx Substance Use: Yes. Substance Use Type: Heroin, Tranquilizers. Hx Substance Use Treatment: Yes ([facility] 2011). - Substances Abused. Heroin. Route: Inhalation. Frequency: Daily. Amount used: 10 BAGS. Age of first use: 36. Date of Last Use: 11/17/17. Alprazolam (Xanax) . Route: Oral. Frequency: Daily. Amount used: 4MG. Age of first use: 31. Date of Last Use: 11/17/17 Medical History: Denies significant medical issues Psychiatric History: Patient reports unclear psychiatric admission for [facility] on about 5-6 years ago, reports no medications taking prior to admission, denioes suicidal and homicidal histrory, asking for Trazodone 100mg po qhs for insomnia. As per computer bthere is a history of Bipolar Disorder and Panic Attack. Physical/Sexual Abuse/Trauma History: Denies, unclear Additional Comment: Trazodone 100mg po qhs Mental Status Exam - Mental Status Exam Alert and Oriented to: Person Cognitive Function: Fair Patient Appearance: Unkempt Mood: Sad Affect: Flat Patient Behavior: Sedated Speech Pattern: Delayed Voice Loudness: Mildly Soft/Quiet Thought Process: Goal Oriented Thought Disorder: Being Controlled Hallucinations: Denies Suicidal Ideation: Denies Homicidal Ideation: Denies Insight/Judgement: Fair Sleep: Difficulty falling asleep Appetite: Fair Muscle strength/Tone: Mild Hypotonicity Gait/Station: Normal Additional Comments: Trazodone 100mg po qhs Psychiatric Findings - Problem List ([place] 1, 2,3) (1) Drug-induced mood disorder Current Visit: Yes Status: Acute (2) Bipolar disorder Current Visit: Yes Status: Acute (3) Nicotine dependence Current Visit: Yes Status: Acute Qualifiers: Nicotine product type: cigarettes Substance use status: uncomplicated Qualified Code(s): F17.210 - Nicotine dependence, cigarettes, uncomplicated (4) Opioid dependence with withdrawal Current Visit: Yes Status: Acute (5) Panic attack Current Visit: Yes Status: Acute (6) Opioid abuse Current Visit: No Status: Active - Initial Treatment Plan Initial Treatment Plan: Trazodone 100mg po qhs
[2017-11-21] MEDS ORDERED: METHADONE HCL 5 MG TABLET (FOR DETOX USE ONLY) PO ONE (10:00)
--- NOTE | 2017-11-21 10:12 | PN ---
BHS Progress Note (SOAP) Subjective: joint ache sweat restlessness anxiety irritable gi distress Objective: 11/21/17 10:12 Vital Signs Temperature 97.6 F 11/21/17 06:27 Pulse Rate 52 L 11/21/17 06:27 Respiratory Rate 18 11/21/17 06:27 Blood Pressure 100/49 11/21/17 06:27 O2 Sat by Pulse Oximetry (%) Laboratory Last Values WBC 7.1 K/mm3 (4.0-10.0) D 11/19/17 06:00 RBC 4.53 M/mm3 (3.60-5.2) 11/19/17 06:00 Hgb 13.5 GM/dL (10.7-15.3) 11/19/17 06:00 Hct 41.0 % (32.4-45.2) 11/19/17 06:00 MCV 90.5 fl (80-96) 11/19/17 06:00 MCH 29.7 pg (25.7-33.7) 11/19/17 06:00 MCHC 32.8 g/dl (32.0-36.0) 11/19/17 06:00 RDW 14.2 % (11.6-15.6) 11/19/17 06:00 Plt Count 277 K/MM3 (134-434) 11/19/17 06:00 MPV 9.6 fl (7.5-11.1) 11/19/17 06:00 Sodium 140 mmol/L (136-145) 11/19/17 06:00 Potassium 4.7 mmol/L (3.5-5.1) 11/19/17 06:00 Chloride 103 mmol/L (98-107) 11/19/17 06:00 Carbon Dioxide 29 mmol/L (21-32) 11/19/17 06:00 Anion Gap 8 (8-16) 11/19/17 06:00 BUN 12 mg/dL (7-18) 11/19/17 06:00 Creatinine 0.6 mg/dL (0.55-1.02) 11/19/17 06:00 Creat Clearance w eGFR > 60 (>60) 11/19/17 06:00 Random Glucose 100 mg/dL (74-106) 11/19/17 06:00 Calcium 9.7 mg/dL (8.5-10.1) 11/19/17 06:00 Total Bilirubin 0.1 mg/dL (0.2-1.0) L D 11/19/17 06:00 AST 19 U/L (15-37) 11/19/17 06:00 ALT 20 U/L (12-78) 11/19/17 06:00 Alkaline Phosphatase 94 U/L (45-117) 11/19/17 06:00 Total Protein 7.6 g/dl (6.4-8.2) 11/19/17 06:00 Albumin 4.1 g/dl (3.4-5.0) 11/19/17 06:00 Urine Color Yellow 11/19/17 00:05 Urine Appearance Cloudy 11/19/17 00:05 Urine pH 6.0 (5.0-8.0) 11/19/17 00:05 Ur Specific [place] 1.014 (1.001-1.035) 11/19/17 00:05 Urine Protein Negative (NEGATIVE) 11/19/17 00:05 Urine Glucose (UA) Negative (NEGATIVE) 11/19/17 00:05 Urine Ketones Negative (NEGATIVE) 11/19/17 00:05 Urine Blood 1+ (NEGATIVE) H 11/19/17 00:05 Urine Nitrite Negative (NEGATIVE) 11/19/17 00:05 Urine Bilirubin Negative (<2.0 mg/dL) 11/19/17 00:05 Urine Urobilinogen Negative mg/dL (0.2-1.0) 11/19/17 00:05 Ur Leukocyte Esterase Negative (NEGATIVE) 11/19/17 00:05 Urine WBC (Auto) 2 /hpf (3-5) 11/19/17 00:05 Urine RBC (Auto) 29 /hpf (0-3) 11/19/17 00:05 Ur Epithelial Cells Many /HPF (FEW) 11/19/17 00:05 Calcium Oxalate Crystal Few /hpf (NONE SEEN) 11/19/17 00:05 Urine Bacteria Rare /hpf (NONE SEEN) 11/19/17 00:05 RPR Titer Nonreactive (NONREACTIVE) 11/19/17 06:00 lab noted Assessment: 11/21/17 10:13 withdrawal sx Plan: continue detox
[2017-11-21] MEDS: CYCLOBENZAPRINE HCL 10 MG TABLET (FP) PO PRN (10:39)
[2017-11-21] MEDS: cloNIDine HCL 0.1 MG TABLET PO SCH ×2 (10:40→22:30)
[2017-11-21] MEDS: PRENATAL VITAMINS W/ FOLIC ACID TABLET (FP) PO SCH (10:40)
[2017-11-21] MEDS ORDERED: NICOTINE POLACRILEX 4 MG GUM BUC PRN (10:51)
[2017-11-21] MEDS: NICOTINE 21 MG/24 HOURS TOPICAL PATCH TD SCH (12:00)
[2017-11-21] MEDS: hydrOXYzine PAMOATE 50 MG CAPSULE (FP) PO PRN ×2 (17:42→22:32)
[2017-11-21] MEDS ORDERED: traZODone HCL 100 MG TABLET (FP) PO SCH (22:00)
[2017-11-21] MEDS: THIAMINE HCL 100 MG TABLET (FP) PO SCH (22:30)
[2017-11-22] MEDS ORDERED: METHADONE HCL 10 MG TABLET (FOR DETOX USE ONLY) PO ONE (10:00)
[2017-11-22] MEDS: NICOTINE 21 MG/24 HOURS TOPICAL PATCH TD SCH (10:24)
[2017-11-22] MEDS: cloNIDine HCL 0.1 MG TABLET PO SCH (10:24)
[2017-11-22] MEDS: PRENATAL VITAMINS W/ FOLIC ACID TABLET (FP) PO SCH (10:24)
[2017-11-22 10:53] VITALS: BP 113/67; PULSE 92; TEMP 95.7
--- NOTE | 2017-11-22 12:41 | DS ---
[facility] Detox Discharge Summary Admission Date: 11/18/17 Discharge Date: 11/22/17 - History Present History: Opioid Dependence Additional Comments: 47 years old female admitted for opiates detox patient wants to terminate opiate detox regimen today and go home with children patient insists to leave the detox facility patient is alert oriented x 3 steady gait coherent no acute distress denies withdrawal sx that "heroin detox is three days" treatment options provided such as community self help meeting - Physical Exam Results Vital Signs: Vital Signs Temperature 95.7 F L 11/22/17 10:53 Pulse Rate 92 H 11/22/17 10:53 Respiratory Rate 18 11/22/17 10:53 Blood Pressure 113/67 11/22/17 10:53 O2 Sat by Pulse Oximetry (%) Pertinent Admission Physical Exam Findings: withdrawal sx Vital Signs Temperature 95.7 F L 11/22/17 10:53 Pulse Rate 92 H 11/22/17 10:53 Respiratory Rate 18 11/22/17 10:53 Blood Pressure 113/67 11/22/17 10:53 O2 Sat by Pulse Oximetry (%) Laboratory Last Values WBC 7.1 K/mm3 (4.0-10.0) D 11/19/17 06:00 RBC 4.53 M/mm3 (3.60-5.2) 11/19/17 06:00 Hgb 13.5 GM/dL (10.7-15.3) 11/19/17 06:00 Hct 41.0 % (32.4-45.2) 11/19/17 06:00 MCV 90.5 fl (80-96) 11/19/17 06:00 MCH 29.7 pg (25.7-33.7) 11/19/17 06:00 MCHC 32.8 g/dl (32.0-36.0) 11/19/17 06:00 RDW 14.2 % (11.6-15.6) 11/19/17 06:00 Plt Count 277 K/MM3 (134-434) 11/19/17 06:00 MPV 9.6 fl (7.5-11.1) 11/19/17 06:00 Sodium 140 mmol/L (136-145) 11/19/17 06:00 Potassium 4.7 mmol/L (3.5-5.1) 11/19/17 06:00 Chloride 103 mmol/L (98-107) 11/19/17 06:00 Carbon Dioxide 29 mmol/L (21-32) 11/19/17 06:00 Anion Gap 8 (8-16) 11/19/17 06:00 BUN 12 mg/dL (7-18) 11/19/17 06:00 Creatinine 0.6 mg/dL (0.55-1.02) 11/19/17 06:00 Creat Clearance w eGFR > 60 (>60) 11/19/17 06:00 Random Glucose 100 mg/dL (74-106) 11/19/17 06:00 Calcium 9.7 mg/dL (8.5-10.1) 11/19/17 06:00 Total Bilirubin 0.1 mg/dL (0.2-1.0) L D 11/19/17 06:00 AST 19 U/L (15-37) 11/19/17 06:00 ALT 20 U/L (12-78) 11/19/17 06:00 Alkaline Phosphatase 94 U/L (45-117) 11/19/17 06:00 Total Protein 7.6 g/dl (6.4-8.2) 11/19/17 06:00 Albumin 4.1 g/dl (3.4-5.0) 11/19/17 06:00 Urine Color Yellow 11/19/17 00:05 Urine Appearance Cloudy 11/19/17 00:05 Urine pH 6.0 (5.0-8.0) 11/19/17 00:05 Ur Specific [place] 1.014 (1.001-1.035) 11/19/17 00:05 Urine Protein Negative (NEGATIVE) 11/19/17 00:05 Urine Glucose (UA) Negative (NEGATIVE) 11/19/17 00:05 Urine Ketones Negative (NEGATIVE) 11/19/17 00:05 Urine Blood 1+ (NEGATIVE) H 11/19/17 00:05 Urine Nitrite Negative (NEGATIVE) 11/19/17 00:05 Urine Bilirubin Negative (<2.0 mg/dL) 11/19/17 00:05 Urine Urobilinogen Negative mg/dL (0.2-1.0) 11/19/17 00:05 Ur Leukocyte Esterase Negative (NEGATIVE) 11/19/17 00:05 Urine WBC (Auto) 2 /hpf (3-5) 11/19/17 00:05 Urine RBC (Auto) 29 /hpf (0-3) 11/19/17 00:05 Ur Epithelial Cells Many /HPF (FEW) 11/19/17 00:05 Calcium Oxalate Crystal Few /hpf (NONE SEEN) 11/19/17 00:05 Urine Bacteria Rare /hpf (NONE SEEN) 11/19/17 00:05 RPR Titer Nonreactive (NONREACTIVE) 11/19/17 06:00 lab noted - Treatment Hospital Course: Detox Protocol Followed, Responded well - Medication Discharge Medications: Ambulatory Orders traZODone HCL [Desyrel -] 100 mg PO HS #30 tablet 11/21/17 - Diagnosis (1) Nicotine dependence Status: Acute Qualifiers: Nicotine product type: cigarettes Substance use status: in withdrawal Qualified Code(s): F17.213 - Nicotine dependence, cigarettes, with withdrawal (2) Opioid dependence with withdrawal Status: Acute - AMA Did Patient Leave Against Medical Advice: Yes
[2017-11-23] MEDS ORDERED: METHADONE HCL 5 MG TABLET (FOR DETOX USE ONLY) PO ONE (06:00)
== END 2017-11-22 12:32 | disposition left against medical advice (07) | DRG 770 ==
LOC: YASAS 09:16 → Y6N 15:25
PROVIDERS: ADMIT Internal Medicine; ATTEND Internal Medicine
PROC: HZ2ZZZZ Detoxification Services for Substance Abuse Treatment (ICD-10-PCS; principal; 2017-11-18)
DX: F11.23 Opioid dependence with withdrawal (principal); F13.230 Sedative, hypnotic or anxiolytic dependence with withdrawal, uncomplicated; F17.213 Nicotine dependence, cigarettes, with withdrawal; F31.9 Bipolar disorder, unspecified; F19.24 Other psychoactive substance dependence with psychoactive substance-induced mood disorder; F41.0 Panic disorder [episodic paroxysmal anxiety]; Z91.5 Personal history of self-harm
CPT/HCPCS: 36415; 80053; 81003; 81015; 85027; 86593; 93005; 93010; J0735

== ENCOUNTER 2018-06-24 09:12 | Inpatient (IN) | payer OTHER ==
[2018-06-24 09:37] VITALS: BMI 32.5
--- NOTE | 2018-06-24 10:17 | HP ---
COWS - Scale Resting Pulse: 1= [place] 81-100 Sweatin= Chills/Flushing Restless Observation: 1= Difficult to Sit Still Pupil Size: 1= Pupils >than Normal Bone or Joint Aches: 2= Severe Diffuse Aches Runny Nose/ Eye Tearin= Runny Nose/Eyes GI Upset > 30mins: 2= Nausea/Diarrhea Tremor Observation: 2= Slight Tremor Visible Yawning Observation: 1= 1-2x During Session Anxiety or Irritability: 2=Irritable/Anxious Goose Flesh Skin: 0=Smooth Skin COWS Score: 15 CIWA Score Nausea/Vomitin Muscle Tremors: 2 Anxiety: 2 Agitation: 2 Paroxysmal Sweats: 1-Minimal Palms Moist Orientation: 1-Uncertain about Date Tacttile Disturbances: 1-Very Mild Itch/Numbness Auditory Disturbances: 1-Very Mild Visual Disturbances: 0-None Headache: 2-Mild CIWA-Ar Total Score: 14 - Admission Criteria [facility] Guidelines: Admission for Medically Managed Detox: Requires at least one of the followin. CIWA greater than 12 2. Seizures within the past 24 hours 3. Delirium tremens within the past 24 hours 4. Hallucinations within the past 24 hours 5. Acute intervention needed for co occurring medical disorder 6. Acute intervention needed for co occurring psychiatric disorder 7. Severe withdrawal that cannot be handled at a lower level of care (continued vomiting, continued diarrhea, abnormal vital signs) requiring intravenous medication and/or fluids 8. Patient presents the following: CIWA greater than 12 Admission Criteria Met: Admission criteria met Admission ROS S - HPI Chief Complaint: i need help to stop using heroin and xanax Allergies/Adverse Reactions: Allergies Allergy/AdvReac Type Severity Reaction Status Date / Time celecoxib [From Celebrex] Allergy Severe Hives Verified 06/24/18 10:48 History of Present Illness: this 48 years old female with heroin and xanax dependence,requested detox, withdrawal symptom, multiple admissions in the past but keep relapsing last detox 02/11/18 to nicotine dependence anxiety,depression,insomnia longest period of sobriety 8 months plan may go to methadone program after detox Exam Limitations: No Limitations - Ebola screening Have you been sick,other than usual withdrawal symptoms: No - Review of Systems Constitutional: Chills, Malaise, Changes in sleep, Weakness EENT: reports: Tearing, Nose Congestion Respiratory: reports: No Symptoms reported Cardiac: reports: No Symptoms Reported GI: reports: Nausea, Poor Appetite, Abdominal cramping : reports: No Symptoms Reported Musculoskeletal: reports: Back Pain, Joint Pain, Muscle Pain, Joint Stiffness Integumentary: reports: Dryness Neuro: reports: Tremors Endocrine: reports: No Symptoms Reported Hematology: reports: No Symptoms Reported Psychiatric: reports: No Sypmtoms Reported, Judgement Intact, Mood/Affect Appropiate, Orientated x3, Anxious, Depressed (bipolar disorder) Patient History - Patient Medical History Hx Anemia: No Hx Asthma: No Hx Chronic Obstructive Pulmonary Disease (COPD): No Hx Cancer: No Hx Cardiac Disorders: No Hx Hypertension: No Hx Hypercholesterolemia: No Hx Pacemaker: No HX Cerebrovascular Accident: No Hx Seizures: No Hx Dementia: No Hx Diabetes: No Hx Gastrointestinal Disorders: No Hx Liver Disease: No Hx Genitourinary Disorders: No Hx Sexually Transmitted Disorders: No Hx Renal Disease (ESRD): No Hx Thyroid Disease: No Hx Human Immunodeficiency Virus (HIV): No (last 09/01 negative) Hx Hepatitis C: No Hx Depression: No Hx Suicide Attempt: Yes (overdose 2015) Hx Bipolar Disorder: Yes ([employer]) Hx Schizophrenia: No Other Medical History: no sucidal,no homicidal - Patient Surgical History Past Surgical History: No Hx Neurologic Surgery: No Hx Cataract Extraction: No Hx Cardiac Surgery: No Hx Lung Surgery: No Hx Breast Surgery: No Hx Breast Biopsy: No Hx Abdominal Surgery: No Hx Appendectomy: Yes (1999) Hx Cholecystectomy: No Hx Genitourinary Surgery: No Hx Section: Yes (2000) Hx Orthopedic Surgery: No Anesthesia Reaction: No - PPD History Previous Implant?: Yes Documented Results: Negative w/proof Implanted On Prior [facility] Admission?: Yes Date: 02/13/18 Results: 0 mm PPD to be Administered?: No - Reproductive History Patient is a Female of Child Bearing Age (11 -55 yrs old): Yes Last Menstrual Period: 12/24/17 Patient : No - Smoking Cessation Smoking history: Current every day smoker Have you smoked in the past 12 months: Yes Aproximately how many cigarettes per day: 20 Cigars Per Day: 0 Hx Chewing Tobacco Use: No Initiated information on smoking cessation: Yes 'Breaking Loose' booklet given: 06/24/18 - Substance & Tx. History Hx Alcohol Use: No Hx Substance Use: Yes Substance Use Type: Heroin, Tranquilizers Hx Substance Use Treatment: Yes ([facility] 02/11/18 to 02/13/18) - Substances Abused Heroin Route: Inhalation Frequency: Daily Amount used: 10 bags Age of first use: 38 Date of Last Use: 06/24/18 Alprazolam (Xanax) Route: Oral Frequency: Daily Amount used: 4 mgs to 12 mgs Age of first use: 22 Date of Last Use: 06/22/18 Family Disease History - Family Disease History Family Disease History: Diabetes: Mother (living, hx heroin/xanax,no contact), Other: Father (, AIDS,HIV,hx heroin), Mother, Brother (one - healthy ), Sister (one - healthy -etoh), Son (one - healthy ), Daughter (one - healthy) Admission Physical Exam [facility] - Vital Signs Vital Signs: Vital Signs - 24 hr 06/24/18 09:32 Temperature 97.9 F Pulse Rate 95 H Respiratory 18 Rate Blood Pressure 135/60 - Physical General Appearance: Yes: Moderate Distress, Tremorous, Irritable, Sweating, Anxious HEENTM: Yes: Normal ENT Inspection, [place], Pharynx Normal Respiratory: Yes: Lungs Clear, Normal Breath Sounds, No Respiratory Distress Neck: Yes: Within Normal Limits, Supple, Trachea in good position Breast: Yes: Breast Exam Deferred Cardiology: Yes: Within Normal Limits, Regular Rhythm, Regular Rate, S1, S2 Abdominal: Yes: Within Normal Limits, Normal Bowel Sounds, Non Tender, Flat, Soft Genitourinary: Yes: Within Normal Limits Back: Yes: Normal Inspection, Muscle Spasm Musculoskeletal: Yes: full range of Motion, Back pain, Joint Stiffness, Muscle Pain Extremities: Yes: Tremors Neurological: Yes: rug receiving clerk II-XII NML intact, Fully Oriented, Alert, Motor Strength 5/5 Integumentary: Yes: Dry Lymphatic: Yes: Within Normal Limits - Diagnostic (1) Opioid dependence with withdrawal Current Visit: No Status: Acute (2) Nicotine dependence Current Visit: No Status: Acute Qualifiers: Nicotine product type: cigarettes Substance use status: in withdrawal Qualified Code(s): F17.213 - Nicotine dependence, cigarettes, with withdrawal (3) Panic attack Current Visit: No Status: Acute (4) Sedative, hypnotic or anxiolytic dependence with withdrawal, uncomplicated Current Visit: No Status: Acute (5) Bipolar disorder Current Visit: No Status: Ruled-out Cleared for Admission [facility] - Detox or Rehab [facility] Level of Care: Medically Managed Detox Regimen/Protocol: Methadone/Valium [facility] Breath Alcohol Content Breath Alcohol Content: 0 Urine Pregancy Test - Result Urine Test Results: Negative- NO Line Present Urine Drug Screen - Results Drug Screen Negative: No Urine Drug Screen Results: THC-Marijuana, OPI-Opiates, BZO-Benzodiazepines, OXY- Oxycodone
[2018-06-24] MEDS ORDERED: P-EPHED 60MG/TRIPROLIDI 2.5MG TABLET PO PRN (10:43)
[2018-06-24] MEDS ORDERED: IBUPROFEN 400 MG TABLET (FP) PO PRN (10:43)
[2018-06-24] MEDS ORDERED: ACETAMINOPHEN 325 MG TABLET (FP) PO PRN (10:43)
[2018-06-24] MEDS ORDERED: MENTHOL/PHENOL 1 EACH UD MM PRN (10:43)
[2018-06-24] MEDS ORDERED: MAGNESIUM HYDROX 2400MG/30ML ORAL SUSPENSION 30 ML CUP PO PRN (10:43)
[2018-06-24] MEDS ORDERED: MAG HYDROX/AL HYDROX/SIMETH 30 ML UNIT-DOSE CUP PO PRN (10:43)
[2018-06-24] MEDS ORDERED: MAGNESIUM CITRATE 300 ML BOTTLE PO PRN (10:43)
[2018-06-24] MEDS ORDERED: LOPERAMIDE HCL 2 MG CAPSULE PO PRN (10:43)
[2018-06-24] MEDS ORDERED: guaiFENesin/D-METHORPHAN HB 10 ML UNIT-DOSE CUPS PO PRN (10:43)
[2018-06-24] MEDS ORDERED: diazePAM 5 MG TABLET PO ONE (11:30)
[2018-06-24] MEDS ORDERED: METHADONE HCL 10 MG TABLET (FOR DETOX USE ONLY) PO ONE ×2 (11:30→23:00)
[2018-06-24] MEDS: CYCLOBENZAPRINE HCL 10 MG TABLET (FP) PO PRN (11:45)
[2018-06-24] MEDS: diazePAM 5 MG TABLET PO SCH ×2 (13:19→22:04)
[2018-06-24 14:27] LABS: URINE APPEARANCE CLOUDY; URINE BILIRUBIN NEGATIVE (<2.0 mg/dL); URINE COLOR YELLOW; URINE GLUCOSE (UA) NEGATIVE (NEGATIVE); URINE KETONE NEGATIVE (NEGATIVE); URINE LEUK ESTERASE 1+ (NEGATIVE); URINE NITRITE NEGATIVE (NEGATIVE); URINE PROTEIN NEGATIVE (NEGATIVE); URINE UROBILINOGEN NEGATIVE mg/dL (0.2-1.0)
[2018-06-24 14:48] LABS: EPI CELLS MANY /HPF (FEW); URINE BACTERIA RARE /hpf (NONE SEEN); URINE MUCUS RARE
[2018-06-24] MEDS ORDERED: MELATONIN 5 MG TABLETS PO PRN (22:00)
[2018-06-24] MEDS: THIAMINE HCL 100 MG TABLET (FP) PO SCH (22:04)
[2018-06-24] MEDS: cloNIDine HCL 0.1 MG TABLET PO SCH (22:04)
[2018-06-25] MEDS: diazePAM 5 MG TABLET PO SCH ×3 (06:07→22:06)
[2018-06-25] MEDS ORDERED: METHADONE HCL 10 MG TABLET (FOR DETOX USE ONLY) PO SCH (10:00)
[2018-06-25] MEDS: PRENATAL VITAMINS W/ FOLIC ACID TABLET (FP) PO SCH (10:07)
[2018-06-25] MEDS: diazePAM 5 MG TABLET PO PRN ×2 (10:07→21:06)
[2018-06-25] MEDS: cloNIDine HCL 0.1 MG TABLET PO SCH (10:07)
[2018-06-25] MEDS: CYCLOBENZAPRINE HCL 10 MG TABLET (FP) PO PRN ×2 (10:07→22:06)
--- NOTE | 2018-06-25 10:34 | PN ---
[facility] CIWA - CIWA Score Nausea/Vomitin-Mild Nausea/No Vomiting Muscle Tremors: 3 Anxiety: 2 Agitation: 2 Paroxysmal Sweats: 1-Minimal Palms Moist Orientation: 1-Uncertain about Date Tacttile Disturbances: 1-Very Mild Itch/Numbness Auditory Disturbances: 0-None Visual Disturbances: 0-None Headache: 1-Very Mild CIWA-Ar Total Score: 12 [facility] COWS - Scale Resting Pulse: 0= [place] 80 or Below Sweatin= Chills/Flushing Restless Observation: 1= Difficult to Sit Still Pupil Size: 0= Normal to Room Light Bone or Joint Aches: 2= Severe Diffuse Aches Runny Nose/ Eye Tearin= Nasal Congestion GI Upset > 30mins: 2= Nausea/Diarrhea Tremor Observation of Outstretched Hands: 2= Slight Tremor Visible Yawning Observation: 2= >3x During Session Anxiety or Irritability: 1=Feels Anxious/Irritable Goose Flesh Skin: 0=Smooth Skin COWS Score: 12 S Progress Note (SOAP) Subjective: gi distress, tremor, sweat anxiety, restlessness zantac history of narcan 02/2018 history of suboxone longest sobriety 6 months low bp change clonidine to daily Objective: 06/25/18 10:37 Vital Signs Temperature 97.5 F L 06/25/18 10:24 Pulse Rate 81 06/25/18 10:24 Respiratory Rate 16 06/25/18 10:24 Blood Pressure 115/72 06/25/18 10:24 O2 Sat by Pulse Oximetry (%) Laboratory Last Values Urine Color Yellow 06/24/18 12:00 Urine Appearance Cloudy 06/24/18 12:00 Urine pH 5.0 (5.0-8.0) 06/24/18 12:00 Ur Specific [place] 1.025 (1.010-1.035) 06/24/18 12:00 Urine Protein Negative (NEGATIVE) 06/24/18 12:00 Urine Glucose (UA) Negative (NEGATIVE) 06/24/18 12:00 Urine Ketones Negative (NEGATIVE) 06/24/18 12:00 Urine Blood 1+ (NEGATIVE) H 06/24/18 12:00 Urine Nitrite Negative (NEGATIVE) 06/24/18 12:00 Urine Bilirubin Negative (<2.0 mg/dL) 06/24/18 12:00 Urine Urobilinogen Negative mg/dL (0.2-1.0) 06/24/18 12:00 Ur Leukocyte Esterase 1+ (NEGATIVE) H 06/24/18 12:00 Urine WBC (Auto) 8 /hpf (3-5) 06/24/18 12:00 Urine RBC (Auto) 2 /hpf (0-3) 06/24/18 12:00 Ur Epithelial Cells Many /HPF (FEW) 06/24/18 12:00 Urine Bacteria Rare /hpf (NONE SEEN) 06/24/18 12:00 Urine Mucus Rare 06/24/18 12:00 lab noted Assessment: 06/25/18 10:37 withdrawal sx low range bp gi distress begin zantac Plan: continue detox bp monitoring gi symptom management
[2018-06-25 10:56] LABS: HEMATOCRIT 41.7 % (32.4-45.2); HEMOGLOBIN 13.6 GM/dL (10.7-15.3); MCH 29.5 pg (25.7-33.7); MCHC 32.5 g/dl (32.0-36.0); MEAN CELL VOLUME 90.7 fl (80-96); MEAN PLT VOLUME 9.8 fl (7.5-11.1); PLATELET COUNT 261 K/MM3 (134-434); RDW 13.7 % (11.6-15.6); WHITE BLOOD COUNT 8.4 K/mm3 (4.0-10.0)
[2018-06-25 11:03] LABS: ALBUMIN 4.2 g/dl (3.4-5.0); ALK PHOS 89 U/L (45-117); ANION GAP 7 MMOL/L (8-16); BILIRUBIN,TOTAL 0.3 mg/dL (0.2-1); BLOOD UREA NITROGEN 10 mg/dL (7-18); CALCIUM 9.5 mg/dL (8.5-10.1); CHLORIDE 103 mmol/L (98-107); CO2 29 mmol/L (21-32); CREATININE 0.7 mg/dL (0.55-1.3); GLUCOSE,RANDOM 108 mg/dL (74-106); SGOT/AST 14 U/L (15-37); SGPT/ALT 22 U/L (13-61); SODIUM 139 mmol/L (136-145); TOT PROT 7.6 g/dl (6.4-8.2)
[2018-06-25] MEDS: RANITIDINE HCL 150 MG TABLET (FP) PO SCH ×2 (12:45→22:15)
--- NOTE | 2018-06-25 14:01 | PN ---
JP Progress Note Note: Psychiatrist information systems consultant: As per nursing report patient started on: Trazodone 100mg po qhs
--- NOTE | 2018-06-25 19:32 | EKG ---
Test Reason : Blood Pressure : / mmHG Vent. Rate : 065 BPM Atrial Rate : 065 BPM P-R Int : 140 ms QRS Dur : 088 ms QT Int : 394 ms P-R-T Axes : 014 045 038 degrees QTc Int : 409 ms NORMAL SINUS RHYTHM NORMAL ECG WHEN COMPARED WITH ECG OF 11-FEB-2018 11:39, NO SIGNIFICANT CHANGE WAS FOUND Confirmed by ELAN DIAZ MD ([id number]) on 06/25/2018 7:31:38 PM Referred By: Sonia Feng Confirmed By:ELAN DIAZ MD
[2018-06-25] MEDS: traZODone HCL 100 MG TABLET (FP) PO SCH (22:06)
[2018-06-25] MEDS: THIAMINE HCL 100 MG TABLET (FP) PO SCH (22:06)
[2018-06-26] MEDS: diazePAM 5 MG TABLET PO PRN ×3 (05:48→22:42)
--- NOTE | 2018-06-26 09:56 | PN ---
[facility] CIWA - CIWA Score Nausea/Vomitin-No Nausea/No Vomiting Muscle Tremors: 3 Anxiety: 2 Agitation: 1-Slight > Activity Paroxysmal Sweats: 1-Minimal Palms Moist Orientation: 0-Oriented Tacttile Disturbances: 1-Very Mild Itch/Numbness Auditory Disturbances: 1-Very Mild Visual Disturbances: 0-None Headache: 1-Very Mild CIWA-Ar Total Score: 10 BHS COWS - Scale Resting Pulse: 0= [place] 80 or Below Sweatin= Chills/Flushing Restless Observation: 1= Difficult to Sit Still Pupil Size: 0= Normal to Room Light Bone or Joint Aches: 2= Severe Diffuse Aches Runny Nose/ Eye Tearin= Nasal Congestion GI Upset > 30mins: 1= Stomach Cramp Tremor Observation of Outstretched Hands: 1= Tremor [place], Not Seen Yawning Observation: 1= 1-2x During Session Anxiety or Irritability: 1=Feels Anxious/Irritable Goose Flesh Skin: 0=Smooth Skin COWS Score: 9 S Progress Note (SOAP) Subjective: trouble sleep at night c/o trazodone has opposite effect that can not sleep all night tremor sweat anxiety restlessness body ache headache joints p ain Objective: 06/26/18 09:54 Vital Signs Temperature 97.7 F 06/26/18 09:23 Pulse Rate 63 06/26/18 09:23 Respiratory Rate 18 06/26/18 09:23 Blood Pressure 112/72 06/26/18 09:23 O2 Sat by Pulse Oximetry (%) Laboratory Last Values WBC 8.4 K/mm3 (4.0-10.0) 06/25/18 05:35 RBC 4.60 M/mm3 (3.60-5.2) 06/25/18 05:35 Hgb 13.6 GM/dL (10.7-15.3) 06/25/18 05:35 Hct 41.7 % (32.4-45.2) 06/25/18 05:35 MCV 90.7 fl (80-96) 06/25/18 05:35 MCH 29.5 pg (25.7-33.7) 06/25/18 05:35 MCHC 32.5 g/dl (32.0-36.0) 06/25/18 05:35 RDW 13.7 % (11.6-15.6) 06/25/18 05:35 Plt Count 261 K/MM3 (134-434) 06/25/18 05:35 MPV 9.8 fl (7.5-11.1) 06/25/18 05:35 Sodium 139 mmol/L (136-145) 06/25/18 05:35 Potassium 4.0 mmol/L (3.5-5.1) 06/25/18 05:35 Chloride 103 mmol/L (98-107) 06/25/18 05:35 Carbon Dioxide 29 mmol/L (21-32) 06/25/18 05:35 Anion Gap 7 MMOL/L (8-16) L 06/25/18 05:35 BUN 10 mg/dL (7-18) 06/25/18 05:35 Creatinine 0.7 mg/dL (0.55-1.3) 06/25/18 05:35 Creat Clearance w eGFR > 60 (>60) 06/25/18 05:35 Random Glucose 108 mg/dL (74-106) H 06/25/18 05:35 Calcium 9.5 mg/dL (8.5-10.1) 06/25/18 05:35 Total Bilirubin 0.3 mg/dL (0.2-1) 06/25/18 05:35 AST 14 U/L (15-37) L 06/25/18 05:35 ALT 22 U/L (13-61) 06/25/18 05:35 Alkaline Phosphatase 89 U/L (45-117) 06/25/18 05:35 Total Protein 7.6 g/dl (6.4-8.2) 06/25/18 05:35 Albumin 4.2 g/dl (3.4-5.0) 06/25/18 05:35 Urine Color Yellow 06/24/18 12:00 Urine Appearance Cloudy 06/24/18 12:00 Urine pH 5.0 (5.0-8.0) 06/24/18 12:00 Ur Specific [place] 1.025 (1.010-1.035) 06/24/18 12:00 Urine Protein Negative (NEGATIVE) 06/24/18 12:00 Urine Glucose (UA) Negative (NEGATIVE) 06/24/18 12:00 Urine Ketones Negative (NEGATIVE) 06/24/18 12:00 Urine Blood 1+ (NEGATIVE) H 06/24/18 12:00 Urine Nitrite Negative (NEGATIVE) 06/24/18 12:00 Urine Bilirubin Negative (<2.0 mg/dL) 06/24/18 12:00 Urine Urobilinogen Negative mg/dL (0.2-1.0) 06/24/18 12:00 Ur Leukocyte Esterase 1+ (NEGATIVE) H 06/24/18 12:00 Urine WBC (Auto) 8 /hpf (3-5) 06/24/18 12:00 Urine RBC (Auto) 2 /hpf (0-3) 06/24/18 12:00 Ur Epithelial Cells Many /HPF (FEW) 06/24/18 12:00 Urine Bacteria Rare /hpf (NONE SEEN) 06/24/18 12:00 Urine Mucus Rare 06/24/18 12:00 RPR Titer Nonreactive (NONREACTIVE) 06/25/18 05:35 lab noted ua repeat 06/26/18 09:55 Assessment: 06/26/18 09:56 withdrawal sx Plan: continue detox
--- NOTE | 2018-06-26 10:05 | CONSULT ---
[facility] Psychiatric Consult - Data Date of interview: 06/26/18 Admission source: [facility] Identifying data: this is a 48 years old female, , mother of two, living with significant other, on [facility], with history of Bipolar Disorder, psychiatric hospitalization history, with Alcohol dependence, reporting withdrawal symptoms and requested detox, reporting multiple admissions in the past but keeps relapsing with the last detox on 02/11/18 to 02/13/18 Substance Abuse History: Smoking history: Current every day smoker. Have you smoked in the past 12 months: Yes. Aproximately how many cigarettes per day: 20. Cigars Per Day: 0. Hx Chewing Tobacco Use: No. Initiated information on smoking cessation: Yes. 'Breaking Loose' booklet given: 06/24/18. - Substance & Tx. History. Hx Alcohol Use: No. Hx Substance Use: Yes. Substance Use Type : Heroin, Tranquilizers. Hx Substance Use Treatment: Yes ([facility] 02/11/18 to 10/02). - Substances Abused. Heroin. Route: Inhalation. Frequency: Daily. Amount used: 10 bags. Age of first use: 38. Date of Last Use: . Alprazolam (Xanax). Route: Oral. Frequency: Daily. Amount used: 4 mgs to 12 mgs. Age of first use: 22. Date of Last Use: 06/22/18 Medical History: Denies significant medical issues Psychiatric History: Patient reports to carry Bipolar Disorder, Panic Disorder with most recent psychiatric admission on 2015 at [facility] for safety, reports taking prior to admission: Trazodone 100mg po qhs Physical/Sexual Abuse/Trauma History: Denies Additional Comment: Trazodone 100mg po qhs Mental Status Exam - Mental Status Exam Alert and Oriented to: Person Cognitive Function: Fair Patient Appearance: Unkempt Mood: Sad Affect: Mood Congruent Patient Behavior: Cooperative Speech Pattern: Appropriate, Delayed Voice Loudness: Mildly Soft/Quiet Thought Process: Goal Oriented Thought Disorder: Being Controlled Hallucinations: Denies Suicidal Ideation: Denies Homicidal Ideation: Denies Insight/Judgement: Fair Sleep: Difficulty falling asleep Appetite: Fair Muscle strength/Tone: Normal Gait/Station: Normal Additional Comments: Trazodone 100mg po qhs Psychiatric Findings - Problem List ([place] 1, 2,3) (1) Cannabis use disorder, mild, abuse Current Visit: No Status: Acute (2) Drug-induced mood disorder Current Visit: No Status: Acute (3) Nicotine dependence Current Visit: No Status: Acute Qualifiers: Nicotine product type: cigarettes Substance use status: in withdrawal Qualified Code(s): F17.213 - Nicotine dependence, cigarettes, with withdrawal (4) Opioid dependence with withdrawal Current Visit: No Status: Acute (5) Sedative, hypnotic or anxiolytic dependence with withdrawal, uncomplicated Current Visit: No Status: Acute (6) Substance induced mood disorder Current Visit: No Status: Acute (7) Substance-induced sleep disorder Current Visit: No Status: Acute - Initial Treatment Plan Initial Treatment Plan: Trazodone 100mg po qhs
[2018-06-26] MEDS: RANITIDINE HCL 150 MG TABLET (FP) PO SCH ×2 (10:30→22:44)
[2018-06-26] MEDS: PRENATAL VITAMINS W/ FOLIC ACID TABLET (FP) PO SCH (10:30)
[2018-06-26] MEDS: cloNIDine HCL 0.1 MG TABLET PO SCH (10:30)
[2018-06-26] MEDS: METHADONE HCL 5 MG TABLET (FOR DETOX USE ONLY) PO SCH (10:30)
[2018-06-26] MEDS: diazePAM 5 MG TABLET PO SCH ×2 (10:30→22:44)
[2018-06-26] MEDS: CYCLOBENZAPRINE HCL 10 MG TABLET (FP) PO PRN (22:42)
[2018-06-26] MEDS: hydrOXYzine PAMOATE 50 MG CAPSULE (FP) PO PRN (22:43)
[2018-06-26] MEDS: THIAMINE HCL 100 MG TABLET (FP) PO SCH (22:43)
[2018-06-26] MEDS: traZODone HCL 100 MG TABLET (FP) PO SCH (22:44)
--- NOTE | 2018-06-27 09:48 | PN ---
[facility] Progress Note (SOAP) Subjective: anxiety restlessness sweat tremor body aches joints pain Objective: 06/27/18 09:47 Vital Signs Temperature 97.7 F 06/27/18 09:06 Pulse Rate 79 06/27/18 09:06 Respiratory Rate 18 06/27/18 09:06 Blood Pressure 106/62 06/27/18 09:06 O2 Sat by Pulse Oximetry (%) Laboratory Last Values WBC 8.4 K/mm3 (4.0-10.0) 06/25/18 05:35 RBC 4.60 M/mm3 (3.60-5.2) 06/25/18 05:35 Hgb 13.6 GM/dL (10.7-15.3) 06/25/18 05:35 Hct 41.7 % (32.4-45.2) 06/25/18 05:35 MCV 90.7 fl (80-96) 06/25/18 05:35 MCH 29.5 pg (25.7-33.7) 06/25/18 05:35 MCHC 32.5 g/dl (32.0-36.0) 06/25/18 05:35 RDW 13.7 % (11.6-15.6) 06/25/18 05:35 Plt Count 261 K/MM3 (134-434) 06/25/18 05:35 MPV 9.8 fl (7.5-11.1) 06/25/18 05:35 Sodium 139 mmol/L (136-145) 06/25/18 05:35 Potassium 4.0 mmol/L (3.5-5.1) 06/25/18 05:35 Chloride 103 mmol/L (98-107) 06/25/18 05:35 Carbon Dioxide 29 mmol/L (21-32) 06/25/18 05:35 Anion Gap 7 MMOL/L (8-16) L 06/25/18 05:35 BUN 10 mg/dL (7-18) 06/25/18 05:35 Creatinine 0.7 mg/dL (0.55-1.3) 06/25/18 05:35 Creat Clearance w eGFR > 60 (>60) 06/25/18 05:35 Random Glucose 108 mg/dL (74-106) H 06/25/18 05:35 Calcium 9.5 mg/dL (8.5-10.1) 06/25/18 05:35 Total Bilirubin 0.3 mg/dL (0.2-1) 06/25/18 05:35 AST 14 U/L (15-37) L 06/25/18 05:35 ALT 22 U/L (13-61) 06/25/18 05:35 Alkaline Phosphatase 89 U/L (45-117) 06/25/18 05:35 Total Protein 7.6 g/dl (6.4-8.2) 06/25/18 05:35 Albumin 4.2 g/dl (3.4-5.0) 06/25/18 05:35 Urine Color Yellow 06/24/18 12:00 Urine Appearance Cloudy 06/24/18 12:00 Urine pH 5.0 (5.0-8.0) 06/24/18 12:00 Ur Specific [place] 1.025 (1.010-1.035) 06/24/18 12:00 Urine Protein Negative (NEGATIVE) 06/24/18 12:00 Urine Glucose (UA) Negative (NEGATIVE) 06/24/18 12:00 Urine Ketones Negative (NEGATIVE) 06/24/18 12:00 Urine Blood 1+ (NEGATIVE) H 06/24/18 12:00 Urine Nitrite Negative (NEGATIVE) 06/24/18 12:00 Urine Bilirubin Negative (<2.0 mg/dL) 06/24/18 12:00 Urine Urobilinogen Negative mg/dL (0.2-1.0) 06/24/18 12:00 Ur Leukocyte Esterase 1+ (NEGATIVE) H 06/24/18 12:00 Urine WBC (Auto) 8 /hpf (3-5) 06/24/18 12:00 Urine RBC (Auto) 2 /hpf (0-3) 06/24/18 12:00 Ur Epithelial Cells Many /HPF (FEW) 06/24/18 12:00 Urine Bacteria Rare /hpf (NONE SEEN) 06/24/18 12:00 Urine Mucus Rare 06/24/18 12:00 RPR Titer Nonreactive (NONREACTIVE) 06/25/18 05:35 lab noted Assessment: 06/27/18 09:48 withdrawal sx Plan: continue detox
[2018-06-27] MEDS: PRENATAL VITAMINS W/ FOLIC ACID TABLET (FP) PO SCH (10:16)
[2018-06-27] MEDS: METHADONE HCL 5 MG TABLET (FOR DETOX USE ONLY) PO SCH (10:16)
[2018-06-27] MEDS: diazePAM 5 MG TABLET PO SCH ×2 (10:16→22:10)
[2018-06-27] MEDS: cloNIDine HCL 0.1 MG TABLET PO SCH (10:16)
[2018-06-27] MEDS: RANITIDINE HCL 150 MG TABLET (FP) PO SCH ×2 (10:16→22:10)
[2018-06-27] MEDS: hydrOXYzine PAMOATE 50 MG CAPSULE (FP) PO PRN (17:37)
[2018-06-27] MEDS: traZODone HCL 100 MG TABLET (FP) PO SCH (22:10)
[2018-06-27] MEDS: THIAMINE HCL 100 MG TABLET (FP) PO SCH (22:10)
--- NOTE | 2018-06-28 08:24 | PN ---
[facility] Progress Note (SOAP) Subjective: Pt states she is fine with the medication she is getting for withdrawal from opioids and benzos O: Vital Signs - 24 hr 06/27/18 06/27/18 06/27/18 09:06 14:13 17:16 Temperature 97.7 F 97.3 F L 98.1 F Pulse Rate 79 81 85 Respiratory 18 18 18 Rate Blood Pressure 106/62 99/60 97/59 L 06/27/18 06/28/18 06/28/18 22:10 00:30 03:30 Temperature 97.9 F Pulse Rate 65 Respiratory 18 18 18 Rate Blood Pressure 122/78 06/28/18 06:00 Temperature 97.9 F Pulse Rate 91 H Respiratory 18 Rate Blood Pressure 100/65 Laboratory Tests 06/24/18 06/25/18 06/25/18 12:00 05:35 05:35 WBC 8.4 RBC 4.60 Hgb 13.6 Hct 41.7 MCV 90.7 MCH 29.5 MCHC 32.5 RDW 13.7 Plt Count 261 MPV 9.8 Sodium 139 Potassium 4.0 Chloride 103 Carbon Dioxide 29 Anion Gap 7 L BUN 10 Creatinine 0.7 Creat Clearance w eGFR > 60 Random Glucose 108 H Calcium 9.5 Total Bilirubin 0.3 AST 14 L ALT 22 Alkaline Phosphatase 89 Total Protein 7.6 Albumin 4.2 Urine Color Yellow Urine Appearance Cloudy Urine pH 5.0 Ur Specific [place] 1.025 Urine Protein Negative Urine Glucose (UA) Negative Urine Ketones Negative Urine Blood 1+ H Urine Nitrite Negative Urine Bilirubin Negative Urine Urobilinogen Negative Ur Leukocyte Esterase 1+ H Urine WBC (Auto) 8 Urine RBC (Auto) 2 Ur Epithelial Cells Many Urine Bacteria Rare Urine Mucus Rare RPR Titer 06/25/18 05:35 WBC RBC Hgb Hct MCV MCH MCHC RDW Plt Count MPV Sodium Potassium Chloride Carbon Dioxide Anion Gap BUN Creatinine Creat Clearance w eGFR Random Glucose Calcium Total Bilirubin AST ALT Alkaline Phosphatase Total Protein Albumin Urine Color Urine Appearance Urine pH Ur Specific [place] Urine Protein Urine Glucose (UA) Urine Ketones Urine Blood Urine Nitrite Urine Bilirubin Urine Urobilinogen Ur Leukocyte Esterase Urine WBC (Auto) Urine RBC (Auto) Ur Epithelial Cells Urine Bacteria Urine Mucus RPR Titer Nonreactive labs WNL VS WNL a/p Opioid and benzo use disorder: continue detox protocol
[2018-06-28] MEDS ORDERED: diazePAM 5 MG TABLET PO SCH (10:00)
[2018-06-28] MEDS ORDERED: METHADONE HCL 10 MG TABLET (FOR DETOX USE ONLY) PO SCH (10:00)
[2018-06-28] MEDS: CYCLOBENZAPRINE HCL 10 MG TABLET (FP) PO PRN ×2 (10:18→22:17)
[2018-06-28] MEDS: cloNIDine HCL 0.1 MG TABLET PO SCH (10:18)
[2018-06-28] MEDS: PRENATAL VITAMINS W/ FOLIC ACID TABLET (FP) PO SCH (10:18)
[2018-06-28] MEDS: RANITIDINE HCL 150 MG TABLET (FP) PO SCH ×2 (10:18→22:16)
[2018-06-28 10:19] LABS: URINE APPEARANCE CLEAR; URINE BILIRUBIN NEGATIVE (<2.0 mg/dL); URINE COLOR STRAW; URINE GLUCOSE (UA) NEGATIVE (NEGATIVE); URINE KETONE NEGATIVE (NEGATIVE); URINE LEUK ESTERASE NEGATIVE (NEGATIVE); URINE NITRITE NEGATIVE (NEGATIVE); URINE PROTEIN NEGATIVE (NEGATIVE); URINE UROBILINOGEN NEGATIVE mg/dL (0.2-1.0)
[2018-06-28] MEDS: hydrOXYzine PAMOATE 50 MG CAPSULE (FP) PO PRN ×2 (13:43→17:52)
[2018-06-28] MEDS: THIAMINE HCL 100 MG TABLET (FP) PO SCH (22:16)
[2018-06-28] MEDS: traZODone HCL 100 MG TABLET (FP) PO SCH (22:16)
[2018-06-28 22:49] VITALS: TEMP 97.9
[2018-06-29] MEDS ORDERED: METHADONE HCL 5 MG TABLET (FOR DETOX USE ONLY) PO SCH (06:00)
[2018-06-29 06:49] VITALS: BP 106/60; PULSE 94
--- NOTE | 2018-06-29 16:03 | DS ---
[facility] Detox Discharge Summary Admission Date: 06/24/18 Discharge Date: 06/29/18 - History Present History: Cannabis Dependence, Opioid Dependence, Sedative Dependence Additional Comments: PATIENT TO ATTEND [facility] ([facility]) FOR AFTERCARE. PATIENT WAS DISCHARGED FROM DETOX UNIT IN STABLE MEDICAL CONDITION. Pertinent Past History: History of Bipolar Disorder, History of Panic Attacks, Nicotine Dependence. - Physical Exam Results Vital Signs: Vital Signs Temperature 97.9 F 06/29/18 06:47 Pulse Rate 94 H 06/29/18 06:47 Respiratory Rate 20 06/29/18 06:47 Blood Pressure 106/60 06/29/18 06:47 O2 Sat by Pulse Oximetry (%) Pertinent Admission Physical Exam Findings: WITHDRAWAL SYMPTOMS. Laboratory Tests 06/24/18 06/25/18 06/25/18 12:00 05:35 05:35 WBC 8.4 RBC 4.60 Hgb 13.6 Hct 41.7 MCV 90.7 MCH 29.5 MCHC 32.5 RDW 13.7 Plt Count 261 MPV 9.8 Sodium 139 Potassium 4.0 Chloride 103 Carbon Dioxide 29 Anion Gap 7 L BUN 10 Creatinine 0.7 Creat Clearance w eGFR > 60 Random Glucose 108 H Calcium 9.5 Total Bilirubin 0.3 AST 14 L ALT 22 Alkaline Phosphatase 89 Total Protein 7.6 Albumin 4.2 Urine Color Yellow Urine Appearance Cloudy Urine pH 5.0 Ur Specific [place] 1.025 Urine Protein Negative Urine Glucose (UA) Negative Urine Ketones Negative Urine Blood 1+ H Urine Nitrite Negative Urine Bilirubin Negative Urine Urobilinogen Negative Ur Leukocyte Esterase 1+ H Urine WBC (Auto) 8 Urine RBC (Auto) 2 Ur Epithelial Cells Many Urine Bacteria Rare Urine Mucus Rare RPR Titer 06/25/18 06/28/18 05:35 08:00 WBC RBC Hgb Hct MCV MCH MCHC RDW Plt Count MPV Sodium Potassium Chloride Carbon Dioxide Anion Gap BUN Creatinine Creat Clearance w eGFR Random Glucose Calcium Total Bilirubin AST ALT Alkaline Phosphatase Total Protein Albumin Urine Color Straw Urine Appearance Clear Urine pH 5.0 Ur Specific [place] 1.012 Urine Protein Negative Urine Glucose (UA) Negative Urine Ketones Negative Urine Blood Negative Urine Nitrite Negative Urine Bilirubin Negative Urine Urobilinogen Negative Ur Leukocyte Esterase Negative Urine WBC (Auto) Urine RBC (Auto) Ur Epithelial Cells Urine Bacteria Urine Mucus RPR Titer Nonreactive LABS NOTED. - Treatment Hospital Course: Detox Protocol Followed, Detoxed Safely, Responded well, Discharged Condition Good Patient has Accepted a Rehab Referral to: PATIENT WILL ATTEND [facility] ([facility] FOR AFTERCARE. - Medication Discharge Medications: Ambulatory Orders traZODone HCL [Desyrel -] 100 mg PO HS #30 tablet 06/29/18 - Diagnosis (1) Cannabis use disorder, mild, abuse Status: Acute (2) Drug-induced mood disorder Status: Acute (3) Nicotine dependence Status: Acute Qualifiers: Nicotine product type: cigarettes Substance use status: in withdrawal Qualified Code(s): F17.213 - Nicotine dependence, cigarettes, with withdrawal (4) Opioid dependence with withdrawal Status: Acute (5) Panic attack Status: Acute (6) Sedative, hypnotic or anxiolytic dependence with withdrawal, uncomplicated Status: Acute (7) Substance induced mood disorder Status: Acute (8) Substance-induced sleep disorder Status: Acute (9) Bipolar disorder Status: Suspected Qualifiers: Active/Remission status: remission status unspecified Qualified Code(s): F31.9 - Bipolar disorder, unspecified - AMA Did Patient Leave Against Medical Advice: No
--- NOTE | 2018-06-29 16:03 | PN ---
[facility] Progress Note (SOAP) Subjective: Patient denies any current withdrawal symptoms and reports that she feels well overall. Objective: PATIENT A & O X 3, OBSERVED AMBULATING ON UNIT UNASSISTED. 06/29/18 15:59 Vital Signs Temperature 97.9 F 06/29/18 06:47 Pulse Rate 94 H 06/29/18 06:47 Respiratory Rate 20 06/29/18 06:47 Blood Pressure 106/60 06/29/18 06:47 O2 Sat by Pulse Oximetry (%) Laboratory Tests 06/24/18 06/25/18 06/25/18 12:00 05:35 05:35 WBC 8.4 RBC 4.60 Hgb 13.6 Hct 41.7 MCV 90.7 MCH 29.5 MCHC 32.5 RDW 13.7 Plt Count 261 MPV 9.8 Sodium 139 Potassium 4.0 Chloride 103 Carbon Dioxide 29 Anion Gap 7 L BUN 10 Creatinine 0.7 Creat Clearance w eGFR > 60 Random Glucose 108 H Calcium 9.5 Total Bilirubin 0.3 AST 14 L ALT 22 Alkaline Phosphatase 89 Total Protein 7.6 Albumin 4.2 Urine Color Yellow Urine Appearance Cloudy Urine pH 5.0 Ur Specific [place] 1.025 Urine Protein Negative Urine Glucose (UA) Negative Urine Ketones Negative Urine Blood 1+ H Urine Nitrite Negative Urine Bilirubin Negative Urine Urobilinogen Negative Ur Leukocyte Esterase 1+ H Urine WBC (Auto) 8 Urine RBC (Auto) 2 Ur Epithelial Cells Many Urine Bacteria Rare Urine Mucus Rare RPR Titer 06/25/18 06/28/18 05:35 08:00 WBC RBC Hgb Hct MCV MCH MCHC RDW Plt Count MPV Sodium Potassium Chloride Carbon Dioxide Anion Gap BUN Creatinine Creat Clearance w eGFR Random Glucose Calcium Total Bilirubin AST ALT Alkaline Phosphatase Total Protein Albumin Urine Color Straw Urine Appearance Clear Urine pH 5.0 Ur Specific [place] 1.012 Urine Protein Negative Urine Glucose (UA) Negative Urine Ketones Negative Urine Blood Negative Urine Nitrite Negative Urine Bilirubin Negative Urine Urobilinogen Negative Ur Leukocyte Esterase Negative Urine WBC (Auto) Urine RBC (Auto) Ur Epithelial Cells Urine Bacteria Urine Mucus RPR Titer Nonreactive LABS NOTED. Assessment: 06/29/18 16:00 COMPLETION OF DETOX REGIMEN. Plan: PATIENT SCHEDULED FOR DISCHARGE FROM DETOX UNIT TODAY. PATIENT WILL ATTEND [facility] ([facility]) FOR AFTERCARE.
== END 2018-06-29 08:58 | disposition home or self-care (01) | DRG 773 ==
LOC: YASAS 09:12 → Y6N 10:51
PROC: HZ2ZZZZ Detoxification Services for Substance Abuse Treatment (ICD-10-PCS; principal; 2018-06-24)
DX: F11.23 Opioid dependence with withdrawal (principal); F13.230 Sedative, hypnotic or anxiolytic dependence with withdrawal, uncomplicated; F12.10 Cannabis abuse, uncomplicated; F17.213 Nicotine dependence, cigarettes, with withdrawal; F19.24 Other psychoactive substance dependence with psychoactive substance-induced mood disorder; F19.282 Other psychoactive substance dependence with psychoactive substance-induced sleep disorder; F31.9 Bipolar disorder, unspecified; F41.0 Panic disorder [episodic paroxysmal anxiety]; Z91.5 Personal history of self-harm
CPT/HCPCS: 36415; 80053; 81003; 81015; 85027; 86593; 93005; 93010; J0735

== ENCOUNTER 2018-08-26 21:40 | Emergency (ER) | payer OTHER ==
[2018-08-26 21:43] VITALS: BMI 27.4
--- NOTE | 2018-08-26 21:53 | PDOC ---
Attending Attestation - Resident Resident Name: ReneeKayleen - ED Attending Attestation I have performed the following: I have examined & evaluated the patient, The case was reviewed & discussed with the resident, I agree w/resident's findings & plan - HPI HPI: 08/27/18 01:41 Pt comes with headache x 1 month worse in the past couple weeks. Pt is a smoker and her carboxyHB is high. It is 4.8 Pt states that she sleeps next to a kitchen stove and she worries that she is getting carbon monoxide exposure. Pt has no other complaints. - Physicial Exam PE: 08/27/18 05:23 Agree with resident exam . Pt has no wheeze and she is breathing comfortably.Abd soft and NT and ND. No rashes. Afebrile. Neurologically intact. - Medical Decision Making 08/27/18 01:09 Patient Name: GISELE WOO THIS IS A PRELIMINARY REPORT FROM [employer] [facility] DATE OF SERVICE: 2018-08-27 00:50:04 IMAGES: 139 EXAM: HEAD CT WITHOUT CONTRAST HISTORY: Intoxicated. Headache. COMPARISON: None. FINDINGS: The ventricular system is midline and nondilated. The sulcal pattern is normal for the patient's age. There is no bleed, mass, extra-axial fluid collection or mass effect. No skull fracture or skull lesion is identified. The visualized paranasal sinuses and mastoid air cells are clear. IMPRESSION: Normal exam. 08/27/18 01:50 Pt's CarboxyHb level is 4.8 - expected for a smoker. 08/27/18 05:24 Pt admits to heroin use. Pt is refusing to go to detox for opioid use. She will be discharged, as the admitting team doesn't want to admit her for the headaches. Heart Score/ECG Review - ECG Intrepretation Rhythm: Regular Rhythm - [place]: Normal - P and [place] Prominent R with upright T in V1 (true posterior MT): No Delta Wave(s) Present: No WPW: No - ST and T Early Repolarization: No Non Specific ST-T Wave changes: No - ECG Impressions Normal ECG: Yes Non-specific ST Elevation: No Ischemic Changes: No Bradycardia: Yes
--- NOTE | 2018-08-26 21:53 | PDOC ---
History of Present Illness - General Chief Complaint: Nausea/Vomiting Stated Complaint: VOMITING/HEAD PAIN Time Seen by Provider: 08/26/18 21:52 History Source: Patient Exam Limitations: Intoxication - History of Present Illness Initial Comments: Pt is a 48 yo F, with PMH of bipolar disorder (not currently taking medication) and polysubstance abuse (alcohol, heroin, xanax), who is presenting with complaints of headache, nausea, and vomiting. Pt states her symptoms have been ongoing for about a month, but she has been feeling worse with more nausea and vomiting and limited PO intake over the past 2 days. She wanted to come to the hospital sooner, but "her boyfriend wouldn't let her leave and she had nobody to bring her". Pt states she has been using up to 3 bags of heroin per day, intranasal (no IV injection). Pt states she sleeps next to a gas stove, and that her boyfriend gives her heroin to stay in the house. Pt states the headache is frontal, has been associated with blurry vision, and there are no exacerbating or alleviating symptoms. Pt states she has been taking 4 excedrin at a time for the headache, with minimal relief. She also admits to some L- sided abdominal pain, and says she has been more constipated since using heroin again. Her last BM was 2 days ago, and she is still passing flatus. Pt denies any fevers/chills, syncope, chest pain, palpitations, SOB, urinary symptoms, diarrhea, or leg swelling. Social: 1/2 ppd cigarettes, currently up to "3 bags" of heroin per day intranasal. Currently denies alcohol or other drug use. Pt denies any recent travel or sick contacts. Surgical: appendectomy. Family: no relevant history. 08/27/18 00:21 Past History - Travel Traveled outside of the country in the last 30 days: No Close contact w/someone who was outside of country & ill: No - Past Medical History Allergies/Adverse Reactions: Allergies Allergy/AdvReac Type Severity Reaction Status Date / Time celecoxib [From Celebrex] Allergy Severe Hives Verified 08/26/18 21:43 Home Medications: Ambulatory Orders traZODone HCL [Desyrel -] 100 mg PO HS #30 tablet 06/29/18 Anemia: No Asthma: No Cancer: No Cardiac Disorders: No Hx Myocardial Infarction: No CVA: No COPD: No Dementia: No Diabetes: No GI Disorders: No Disorders: No HTN: No Hypercholesterolemia: No Kidney Stones: No Liver Disease: No Psychiatric Problems: Yes (anxiety,DEPRESSION, bipolar, substance abuse) Seizures: No Thyroid Disease: No - Surgical History Abdominal Surgery: No Appendectomy: Yes (1999) Cardiac Surgery: No Cholecystectomy: No Lung Surgery: No Neurologic Surgery: No Orthopedic Surgery: No - Reproductive History PID: No - Immunization History Immunization Up to Date: Yes - Suicide/Smoking/Psychosocial Hx Smoking History: Never smoked Have you smoked in the past 12 months: Yes Number of Cigarettes Smoked Daily: 20 Cigars Per Day: 0 'Breaking Loose' booklet given: 06/24/18 Hx Alcohol Use: No Drug/Substance Use Hx: Yes Substance Use Type: Heroin, Tranquilizers Hx [facility]stance [facility] Review of Systems - Review of Systems Able to Perform ROS?: Yes Is the patient limited Tajik proficient: No Constitutional: Yes: Loss of Appetite, Weight Stable. No: Chills, Diaphoresis, Fever, Weakness HEENTM: Yes: Blurred Vision. No: Double Vision, Nose Congestion, Hearing Loss, Throat Pain Respiratory: No: Cough, Orthopnea, Shortness of Breath Cardiac (ROS): Yes: Lightheadedness. No: Chest Pain, Edema, Irregular Heart Rate, Palpitations, Syncope, Chest Tightness ABD/GI: Yes: Constipated, Nausea, Poor Appetite, Vomiting. No: Blood Streaked Bowels, Diarrhea, Poor Fluid Intake, Rectal Bleeding, Abdominal cramping : No: Burning, Dysuria, Frequency, Flank Pain, Pain, Urgency Musculoskeletal: No: Back Pain, Joint Pain, Muscle Weakness, Neck Pain Integumentary: No: Rash, Other (no track aceves on arms) Neurological: Yes: Headache. No: Numbness, Paresthesia, Seizure, Tingling, Weakness, Unsteady Gait, Ataxia, Dizziness Psychiatric: Yes: Anxiety, Depression, Emotional Problems, Change in Appetite, Other (polysubstance abuse, bipolar disorder). No: Sleep Pattern Change Endocrine: No: Increased Urine, Change in Weight Hematologic/Lymphatic: No: Anemia, Blood Clots, Easy Bleeding, Easy Bruising All Other Systems: Reviewed and Negative *Physical Exam - Vital Signs Last Vital Signs Temp Pulse Resp BP Pulse Ox 98.0 F 132 H 22 H 156/94 97 08/26/18 21:41 08/26/18 21:41 08/26/18 21:41 08/26/18 21:41 08/26/18 21:41 - Physical Exam General Appearance: Yes: Nourished, Appropriately Dressed, Moderate Distress ( pt appears uncomfortable, dry heaving, tachycardic), Intoxicated. No: Alcohol on Breath HEENT: positive: EOMI, [place] (pupils reactive, but dilated), Normal ENT Inspection, Normal Voice, Pharynx Normal, Hearing Grossly Normal. negative: Scleral Icterus (R), Scleral Icterus (L), Pharyngeal Erythema, Tonsillar Exudate , Tonsillar Erythema, Nasal Congestion, Rhinorrhea, Sinus Tenderness, Hearing Decreased Neck: positive: Trachea midline, Normal Thyroid, Supple. negative: Tender, Rigid, Lymphadenopathy (R), Lymphadenopathy (L), Rigidity Respiratory/Chest: positive: Lungs Clear, Normal Breath Sounds. negative: Chest Tender, Respiratory Distress, Accessory Muscle Use, Crackles, Wheezing Cardiovascular: positive: Regular Rhythm, S1, S2, Tachycardia. negative: Regular Rate, Edema, JVD, Murmur Vascular Pulses: Carotid (R): 4+, Carotid (L): 4+ Gastrointestinal/Abdominal: positive: Normal Bowel Sounds, Flat, Soft. negative : Tender, Organomegaly, Pulsatile Mass, Distended, Guarding, Rebound Rectal Exam: positive: deferred Lymphatic: negative: Adenopathy, Tenderness Musculoskeletal: positive: Normal Inspection. negative: CVA Tenderness Extremity: positive: Normal Capillary Refill, Normal Inspection, Normal Range of Motion, Pelvis Stable. negative: Tender, Pedal Edema, Erythema Integumentary: positive: Normal Color, Dry, Warm. negative: Jaundice, Clammy, Diaphoresis, Rash, Ecchymosis Neurologic: positive: scanning coordinator II-XII NML intact, Alert, Normal Response, Motor Strength 5/5. negative: Fully Oriented (oriented to person and place, does not know day/month/year), Normal Mood/Affect (anxious, tearful on exam.), EOM Palsy , Facial Droop, Numbness, Sensory Deficit Moderate Sedation - Procedure Monitoring Vital Signs: Procedure Monitoring Vital Signs Temperature 98.0 F 01/12/19 21:41 Pulse Rate 132 H 08/26/18 21:41 Respiratory Rate 22 H 08/26/18 21:41 Blood Pressure 156/94 08/26/18 21:41 O2 Sat by Pulse Oximetry (%) 97 08/26/18 21:41 ED Treatment Course - LABORATORY CBC & Chemistry Diagram: 08/26/18 22:55 08/26/18 22:55 Medical Decision Making - Medical Decision Making Pt was seen at bedside, also will be seen by attending Dr. Montes De Oca. Pt presenting with complaints of headache, nausea, and vomiting. Pt states her symptoms have been ongoing for about a month, but she has been feeling worse with more nausea and vomiting and limited PO intake over the past 2 days. She wanted to come to the hospital sooner, but "her boyfriend wouldn't let her leave and she had nobody to bring her". Pt states she has been using up to 3 bags of heroin per day, intranasal (no IV injection). Pt states she sleeps next to a gas stove, and that her boyfriend gives her heroin to stay in the house. Pt states the headache is frontal, has been associated with blurry vision, and there are no exacerbating or alleviating symptoms. Pt states she has been taking 4 excedrin at a time for the headache, with minimal relief. She also admits to some L- sided abdominal pain, and says she has been more constipated since using heroin again. Her last BM was 2 days ago, and she is still passing flatus. Pt denies any fevers/chills, syncope, chest pain, palpitations, SOB, urinary symptoms, diarrhea, or leg swelling. Pt is oriented to place and person only, does not know the year, day, or month. scanning coordinator generally intact. PE showed dilated but reactive pupils, dry mucous membranes. NO meningeal signs. Heart and lung sounds clear. LUQ abdominal tenderness, no rebound or guarding. No palpated stool burden, no CVA tenderness. Considering headache 2/2 substance use (heroin), migraine, carbon monoxide poisoning, head bleed (SAH), psychiatric (other medication use, delusions). Limited concern for meningitis as pt afebrile, no meningeal signs, symptoms x1 month. Ordered work-up including CBC, CMP, serum acetone, VBG, carboxyhemoglobin, ECG, UA, urine culture, urine drug screen, urine test, and non-contrast head CT. Provided 10 mg IV reglan, 12.5 mg IV benadryl, and 1 L IV NS for improvement of pain and dehydration. Will continue to reassess pt and monitor for symptomatic improvement. 08/26/18 23:32 CBC, CMP, coags generally WNL. Carboxyhemoglobin 4.8 UA negative for infection. Urine negative. Drug screen positive for opiates. Serum acetone negative. 08/27/18 00:[address] scan and disposition. Pt signed out to next resident team. Explained presentation, ED course, any pending results, and needed interventions to resident Dr. Dewey. 08/27/18 00:15 *DC/Admit/Observation/Transfer Diagnosis at time of Disposition: Heroin use Nausea and vomiting Qualifiers: Vomiting type: unspecified Vomiting Intractability: non-intractable Qualified Code(s): R11.2 - Nausea with vomiting, unspecified Headache Qualifiers: Headache type: unspecified Headache chronicity pattern: acute headache Intractability: intractable Qualified Code(s): R51 - Headache - Discharge Dispostion Condition at time of disposition: Stable - Referrals - Patient Instructions - Post Discharge Activity
[2018-08-26] MEDS ORDERED: ONDANSETRON 4 MG/2 ML VIAL IVPUSH ONE (22:26)
[2018-08-26] MEDS ORDERED: SODIUM CHLORIDE 1,000 ML IV STA (22:26)
[2018-08-26] MEDS ORDERED: METOCLOPRAMIDE HCL INJECTION 10 MG/2 ML VIAL IVPUSH ONE (22:27)
[2018-08-26 22:47] LABS: URINE APPEARANCE CLEAR; URINE BILIRUBIN NEGATIVE (<2.0 mg/dL); URINE COLOR YELLOW; URINE GLUCOSE (UA) NEGATIVE (NEGATIVE); URINE KETONE NEGATIVE (NEGATIVE); URINE LEUK ESTERASE NEGATIVE (NEGATIVE); URINE NITRITE NEGATIVE (NEGATIVE); URINE PROTEIN NEGATIVE (NEGATIVE); URINE UROBILINOGEN NEGATIVE mg/dL (0.2-1.0)
[2018-08-26 22:50] LABS: EPI CELLS FEW /HPF (FEW); URINE MUCUS RARE
[2018-08-26 23:05] LABS: VENOUS PH 7.38 (7.32-7.42)
[2018-08-26 23:06] LABS: BASO % 0.8 % (0-2.0); EOS % 3.1 % (0-4.5); HEMATOCRIT 38.6 % (32.4-45.2); HEMOGLOBIN 13.3 GM/dL (10.7-15.3); LYMPH % 26.8 % (8-40); MCH 30.5 pg (25.7-33.7); MCHC 34.5 g/dl (32.0-36.0); MEAN CELL VOLUME 88.4 fl (80-96); MEAN PLT VOLUME 8.1 fl (7.5-11.1); MONO % 5.2 % (3.8-10.2); NEUT % 64.1 % (42.8-82.8); PLATELET COUNT 332 K/MM3 (134-434); RBC 4.37 M/mm3 (3.60-5.2); RDW 13.4 % (11.6-15.6); VENOUS PC02 54.2 mmHg (38-52); VENOUS PO2 33.2 mmHg (28-48); WHITE BLOOD COUNT 11.3 K/mm3 (4.0-10.0)
[2018-08-26 23:07] LABS: COCAINE, UR NEGATIVE ng/ml (CUTOFF=300); METHADONE, UR NEGATIVE ng/ml (CUTOFF=300); PHENCYCLIDINE,URINE NEGATIVE ng/ml (CUTOFF=25); URINE AMPHETAMINES NEGATIVE ng/ml (CUTOFF=500); URINE BARBITURATES NEGATIVE ng/ml (CUTOFF=200); URINE BENZODIAZEPINES NEGATIVE ng/ml (CUTOFF=200)
[2018-08-26 23:08] LABS: OPIATES, URI POSITIVE ng/ml (CUTOFF=300)
[2018-08-26] MEDS ORDERED: METOCLOPRAMIDE HCL INJECTION 10 MG/2 ML VIAL ONE (23:10)
[2018-08-26 23:36] LABS: PHOSPHOROUS 3.8 mg/dL (2.5-4.9)
[2018-08-26 23:40] LABS: ALBUMIN 3.8 g/dl (3.4-5.0); ALK PHOS 91 U/L (45-117); ANION GAP 7 MMOL/L (8-16); BILIRUBIN,TOTAL 0.3 mg/dL (0.2-1); BLOOD UREA NITROGEN 10 mg/dL (7-18); CALCIUM 9.3 mg/dL (8.5-10.1); CHLORIDE 101 mmol/L (98-107); CO2 31 mmol/L (21-32); CREATININE 0.7 mg/dL (0.55-1.3); GLUCOSE,RANDOM 103 mg/dL (74-106); POTASSIUM 3.7 mmol/L (3.5-5.1); SGOT/AST 14 U/L (15-37); SGPT/ALT 18 U/L (13-61); SODIUM 140 mmol/L (136-145)
[2018-08-26] MEDS ORDERED: SODIUM CHLORIDE 0.9% 500 ML INFUS.BAG IV ONE (23:40)
[2018-08-26 23:41] LABS: INR 1.1 (0.83-1.09)
[2018-08-26 23:42] VITALS: BP 146/89; PULSE 92; TEMP 98.1
--- NOTE | 2018-08-27 00:13 | PDOC ---
*Physical Exam - Vital Signs Last Vital Signs Temp Pulse Resp BP Pulse Ox 98.1 F 92 H 20 146/89 98 08/26/18 22:00 08/26/18 22:00 08/26/18 22:00 08/26/18 22:00 08/26/18 22:00 <Delilah Dewey - Last Filed: 08/27/18 01:10> - Vital Signs Last Vital Signs Temp Pulse Resp BP Pulse Ox 98.1 F 92 H 20 146/89 98 08/26/18 22:00 08/26/18 22:00 08/26/18 22:00 08/26/18 22:00 08/26/18 22:00 <Natty Montes De Oca - Last Filed: 08/27/18 01:51> ED Treatment Course - LABORATORY CBC & Chemistry Diagram: 08/26/18 22:55 08/26/18 22:55 - ADDITIONAL ORDERS Additional order review: Laboratory Results 08/26/18 08/26/18 08/26/18 23:18 22:56 22:55 PT with INR INR VBG pH POC VBG pCO2 POC VBG pO2 Mixed VBG HCO3 Carboxyhemoglobin 4.8 H Sodium Potassium Chloride Carbon Dioxide Anion Gap BUN Creatinine Creat Clearance w eGFR Random Glucose Calcium Phosphorus 3.8 Magnesium 2.0 Total Bilirubin AST ALT Alkaline Phosphatase Total Protein Albumin Lipase 214 Urine Color Urine Appearance Urine pH Ur Specific [place] Urine Protein Urine Glucose (UA) Urine Ketones Urine Blood Urine Nitrite Urine Bilirubin Urine Urobilinogen Ur Leukocyte Esterase Urine WBC (Auto) Urine RBC (Auto) Ur Epithelial Cells Urine Mucus Urine HCG, Qual Opiates Screen Methadone Screen Barbiturate Screen Phencyclidine Screen Ur Amphetamines Screen MDMA (Ecstasy) Screen Benzodiazepines Screen Cocaine Screen U Marijuana (THC) Screen Acetone, Qual Negative L 08/26/18 08/26/18 08/26/18 22:55 22:55 22:55 PT with INR 13.00 INR 1.10 H VBG pH 7.38 POC VBG pCO2 54.2 H POC VBG pO2 33.2 Mixed VBG HCO3 31.9 H Carboxyhemoglobin Sodium 140 Potassium 3.7 Chloride 101 Carbon Dioxide 31 Anion Gap 7 L BUN 10 Creatinine 0.7 Creat Clearance w eGFR > 60 Random Glucose 103 Calcium 9.3 Phosphorus Magnesium Total Bilirubin 0.3 AST 14 L ALT 18 Alkaline Phosphatase 91 Total Protein 7.0 Albumin 3.8 Lipase Urine Color Urine Appearance Urine pH Ur Specific [place] Urine Protein Urine Glucose (UA) Urine Ketones Urine Blood Urine Nitrite Urine Bilirubin Urine Urobilinogen Ur Leukocyte Esterase Urine WBC (Auto) Urine RBC (Auto) Ur Epithelial Cells Urine Mucus Urine HCG, Qual Opiates Screen Methadone Screen Barbiturate Screen Phencyclidine Screen Ur Amphetamines Screen MDMA (Ecstasy) Screen Benzodiazepines Screen Cocaine Screen U Marijuana (THC) Screen Acetone, Qual 08/26/18 08/26/18 08/26/18 21:34 21:34 21:34 PT with INR INR VBG pH POC VBG pCO2 POC VBG pO2 Mixed VBG HCO3 Carboxyhemoglobin Sodium Potassium Chloride Carbon Dioxide Anion Gap BUN Creatinine Creat Clearance w eGFR Random Glucose Calcium Phosphorus Magnesium Total Bilirubin AST ALT Alkaline Phosphatase Total Protein Albumin Lipase Urine Color Yellow Urine Appearance Clear Urine pH 6.0 Ur Specific [place] 1.016 Urine Protein Negative Urine Glucose (UA) Negative Urine Ketones Negative Urine Blood 2+ H Urine Nitrite Negative Urine Bilirubin Negative Urine Urobilinogen Negative Ur Leukocyte Esterase Negative Urine WBC (Auto) 1 Urine RBC (Auto) 11 Ur Epithelial Cells Few Urine Mucus Rare Urine HCG, Qual Negative Opiates Screen Positive A* Methadone Screen Negative Barbiturate Screen Negative Phencyclidine Screen Negative Ur Amphetamines Screen Negative MDMA (Ecstasy) Screen Negative Benzodiazepines Screen Negative Cocaine Screen Negative U Marijuana (THC) Screen Negative Acetone, Qual 08/26/18 22:55 RBC 4.37 MCV 88.4 MCHC 34.5 RDW 13.4 MPV 8.1 D Neutrophils % 64.1 D Lymphocytes % 26.8 D Monocytes % 5.2 Eosinophils % 3.1 Basophils % 0.8 - Medications Given in the ED: ED Medications Discontinued Medications Generic Name Dose Route Start Last Admin Trade Name Freq PRN Reason Stop Dose Admin Diphenhydramine HCl 12.5 mg 08/26/18 22:28 08/26/18 23:25 Benadryl Injection - IVPUSH 08/26/18 22:29 12.5 mg ONCE ONE Administration Sodium Chloride 1,000 mls @ 1,000 mls/hr 08/26/18 22:26 08/26/18 23:25 Normal Saline - IV 08/26/18 23:25 1,000 mls/hr ASDIR STA Administration Metoclopramide HCl 10 mg 08/26/18 22:27 08/26/18 23:25 Reglan Injection - IVPUSH 08/26/18 22:28 10 mg ONCE ONE Administration <Delilah Dewey - Last Filed: 08/27/18 01:10> - LABORATORY CBC & Chemistry Diagram: 08/26/18 22:55 08/26/18 22:55 - ADDITIONAL ORDERS Additional order review: Laboratory Results 08/26/18 08/26/18 08/26/18 23:18 22:56 22:56 PT with INR INR VBG pH POC VBG pCO2 POC VBG pO2 Mixed VBG HCO3 Carboxyhemoglobin 4.8 H Sodium Potassium Chloride Carbon Dioxide Anion Gap BUN Creatinine Creat Clearance w eGFR Random Glucose Lactic Acid Calcium Phosphorus Magnesium Total Bilirubin AST ALT Alkaline Phosphatase Creatine Kinase 91 Troponin I < 0.02 Total Protein Albumin Lipase Urine Color Urine Appearance Urine pH Ur Specific [place] Urine Protein Urine Glucose (UA) Urine Ketones Urine Blood Urine Nitrite Urine Bilirubin Urine Urobilinogen Ur Leukocyte Esterase Urine WBC (Auto) Urine RBC (Auto) Ur Epithelial Cells Urine Mucus Urine HCG, Qual Opiates Screen Methadone Screen Barbiturate Screen Phencyclidine Screen Ur Amphetamines Screen MDMA (Ecstasy) Screen Benzodiazepines Screen Cocaine Screen U Marijuana (THC) Screen Acetone, Qual Negative L 08/26/18 08/26/18 08/26/18 22:55 22:55 22:55 PT with INR 13.00 INR 1.10 H VBG pH POC VBG pCO2 POC VBG pO2 Mixed VBG HCO3 Carboxyhemoglobin Sodium 140 Potassium 3.7 Chloride 101 Carbon Dioxide 31 Anion Gap 7 L BUN 10 Creatinine 0.7 Creat Clearance w eGFR > 60 Random Glucose 103 Lactic Acid Calcium 9.3 Phosphorus 3.8 Magnesium 2.0 Total Bilirubin 0.3 AST 14 L ALT 18 Alkaline Phosphatase 91 Creatine Kinase Troponin I Total Protein 7.0 Albumin 3.8 Lipase 214 Urine Color Urine Appearance Urine pH Ur Specific [place] Urine Protein Urine Glucose (UA) Urine Ketones Urine Blood Urine Nitrite Urine Bilirubin Urine Urobilinogen Ur Leukocyte Esterase Urine WBC (Auto) Urine RBC (Auto) Ur Epithelial Cells Urine Mucus Urine HCG, Qual Opiates Screen Methadone Screen Barbiturate Screen Phencyclidine Screen Ur Amphetamines Screen MDMA (Ecstasy) Screen Benzodiazepines Screen Cocaine Screen U Marijuana (THC) Screen Acetone, Qual 08/26/18 08/26/18 08/26/18 22:55 22:50 21:34 PT with INR INR VBG pH 7.38 POC VBG pCO2 54.2 H POC VBG pO2 33.2 Mixed VBG HCO3 31.9 H Carboxyhemoglobin Sodium Potassium Chloride Carbon Dioxide Anion Gap BUN Creatinine Creat Clearance w eGFR Random Glucose Lactic Acid 1.7 Calcium Phosphorus Magnesium Total Bilirubin AST ALT Alkaline Phosphatase Creatine Kinase Troponin I Total Protein Albumin Lipase Urine Color Yellow Urine Appearance Clear Urine pH 6.0 Ur Specific [place] 1.016 Urine Protein Negative Urine Glucose (UA) Negative Urine Ketones Negative Urine Blood 2+ H Urine Nitrite Negative Urine Bilirubin Negative Urine Urobilinogen Negative Ur Leukocyte Esterase Negative Urine WBC (Auto) 1 Urine RBC (Auto) 11 Ur Epithelial Cells Few Urine Mucus Rare Urine HCG, Qual Opiates Screen Methadone Screen Barbiturate Screen Phencyclidine Screen Ur Amphetamines Screen MDMA (Ecstasy) Screen Benzodiazepines Screen Cocaine Screen U Marijuana (THC) Screen Acetone, Qual 08/26/18 08/26/18 21:34 21:34 PT with INR INR VBG pH POC VBG pCO2 POC VBG pO2 Mixed VBG HCO3 Carboxyhemoglobin Sodium Potassium Chloride Carbon Dioxide Anion Gap BUN Creatinine Creat Clearance w eGFR Random Glucose Lactic Acid Calcium Phosphorus Magnesium Total Bilirubin AST ALT Alkaline Phosphatase Creatine Kinase Troponin I Total Protein Albumin Lipase Urine Color Urine Appearance Urine pH Ur Specific [place] Urine Protein Urine Glucose (UA) Urine Ketones Urine Blood Urine Nitrite Urine Bilirubin Urine Urobilinogen Ur Leukocyte Esterase Urine WBC (Auto) Urine RBC (Auto) Ur Epithelial Cells Urine Mucus Urine HCG, Qual Negative Opiates Screen Positive A* Methadone Screen Negative Barbiturate Screen Negative Phencyclidine Screen Negative Ur Amphetamines Screen Negative MDMA (Ecstasy) Screen Negative Benzodiazepines Screen Negative Cocaine Screen Negative U Marijuana (THC) Screen Negative Acetone, Qual 08/26/18 22:55 RBC 4.37 MCV 88.4 MCHC 34.5 RDW 13.4 MPV 8.1 D Neutrophils % 64.1 D Lymphocytes % 26.8 D Monocytes % 5.2 Eosinophils % 3.1 Basophils % 0.8 - Medications Given in the ED: ED Medications Discontinued Medications Generic Name Dose Route Start Last Admin Trade Name Freq PRN Reason Stop Dose Admin Diphenhydramine HCl 12.5 mg 08/26/18 22:28 08/26/18 23:25 Benadryl Injection - IVPUSH 08/26/18 22:29 12.5 mg ONCE ONE Administration Sodium Chloride 1,000 mls @ 1,000 mls/hr 08/26/18 22:26 08/26/18 23:25 Normal Saline - IV 08/26/18 23:25 1,000 mls/hr ASDIR STA Administration Metoclopramide HCl 10 mg 08/26/18 22:27 08/26/18 23:25 Reglan Injection - IVPUSH 08/26/18 22:28 10 mg ONCE ONE Administration Sodium Chloride 1,000 ml 08/26/18 23:40 08/27/18 01:34 Normal Saline - IV 08/26/18 23:41 1,000 ml ONCE ONE Administration <Natty Montes De Oca - Last Filed: 08/27/18 01:51> Medical Decision Making - Medical Decision Making Head CT negative Intractable headaches Plant to admit 08/27/18 01:10 <Delilah Dewey - Last Filed: 08/27/18 01:10> *DC/Admit/Observation/Transfer - Discharge Dispostion Decision to Admit order: Yes <Delilah Dewey - Last Filed: 08/27/18 01:10> - Discharge Dispostion Decision to Admit order: No <Natty Montes De Oca - Last Filed: 08/27/18 01:51> Diagnosis at time of Disposition: Heroin use Nausea and vomiting Qualifiers: Vomiting type: unspecified Vomiting Intractability: non-intractable Qualified Code(s): R11.2 - Nausea with vomiting, unspecified Headache Qualifiers: Headache type: unspecified Headache chronicity pattern: acute headache Intractability: intractable Qualified Code(s): R51 - Headache - Discharge Dispostion Disposition: HOME Condition at time of disposition: Improved
--- NOTE | 2018-08-27 08:32 | EKG ---
Test Reason : Blood Pressure : / mmHG Vent. Rate : 057 BPM Atrial Rate : 057 BPM P-R Int : 142 ms QRS Dur : 084 ms QT Int : 426 ms P-R-T Axes : 013 037 040 degrees QTc Int : 414 ms POOR DATA QUALITY, INTERPRETATION MAY BE ADVERSELY AFFECTED SINUS BRADYCARDIA WITH SINUS ARRHYTHMIA OTHERWISE NORMAL ECG WHEN COMPARED WITH ECG OF 24-JUN-2018 12:12, NO SIGNIFICANT CHANGE WAS FOUND Confirmed by LUCIA SAWANT, GUANAKITO ([id number]) on 08/27/2018 8:32:08 AM Referred By: Confirmed By:GUANAKITO MYERS MD
== END 2018-08-27 02:08 | disposition home or self-care (01) ==
LOC: JER 21:40
PROC: 3E0337Z Introduction of Electrolytic and Water Balance Substance into Peripheral Vein, Percutaneous Approach (ICD-10-PCS; principal; 2018-08-26)
PROC: 3E033GC Introduction of Other Therapeutic Substance into Peripheral Vein, Percutaneous Approach (ICD-10-PCS; 2018-08-26)
PROC: 3E033GC Introduction of Other Therapeutic Substance into Peripheral Vein, Percutaneous Approach (ICD-10-PCS; 2018-08-26)
DX: F11.10 Opioid abuse, uncomplicated (principal); R51 Headache; R11.2 Nausea with vomiting, unspecified
CPT/HCPCS: 36415; 70450-TC; 80053; 80307; 81003; 81015; 82009; 82375; 82550; 82803; 83605; 83690; 83735; 84100; 84484; 84703; 85025; 85610; 87086; 93005; 93010; 96361; 96374; 96375; 99284-25; J7030

== ENCOUNTER 2018-08-30 20:07 | Emergency (ER) | payer OTHER ==
[2018-08-30 20:16] VITALS: BP 136/93; PULSE 109; TEMP 97.9; BMI 29.2
[2018-08-30] MEDS ORDERED: METOCLOPRAMIDE HCL INJECTION 10 MG/2 ML VIAL IVPB ONE (20:16)
[2018-08-30] MEDS ORDERED: ACETAMINOPHEN 325 MG TABLET (FP) PO ONE (20:16)
--- NOTE | 2018-08-30 20:16 | PDOC ---
Rapid Medical Evaluation Medical Evaluation: Allergies Allergy/AdvReac Type Severity Reaction Status Date / Time celecoxib [From Celebrex] Allergy Severe Hives Verified 08/26/18 21:43 I have performed a brief in-person evaluation of this patient. The patient presents with a chief complaint of: Patient seen on 08/26 for chronic headaches; head CT negative at that time; states someone called her 2 days ago stating she needs to be admitted; unable to recall who called her Pertinent physical exam findings: In NAD, no gross focal deficits I have ordered the following: Labs, IVF, Tylenol, Reglan The patient will proceed to the ED for further evaluation. 08/30/18 20:15
[2018-08-30] MEDS ORDERED: SODIUM CHLORIDE 1,000 ML IV STA (20:17)
[2018-08-30 21:11] LABS: BASO % 0.7 % (0-2.0); EOS % 3.4 % (0-4.5); HEMATOCRIT 40.5 % (32.4-45.2); HEMOGLOBIN 13.7 GM/dL (10.7-15.3); LYMPH % 34.7 % (8-40); MCH 30.7 pg (25.7-33.7); MCHC 33.9 g/dl (32.0-36.0); MEAN CELL VOLUME 90.8 fl (80-96); MEAN PLT VOLUME 8.6 fl (7.5-11.1); NEUT % 56.2 % (42.8-82.8); PLATELET COUNT 328 K/MM3 (134-434); RBC 4.46 M/mm3 (3.60-5.2); RDW 13.5 % (11.6-15.6)
[2018-08-30 21:36] LABS: ANION GAP 7 MMOL/L (8-16); BLOOD UREA NITROGEN 8 mg/dL (7-18); CALCIUM 9.3 mg/dL (8.5-10.1); CHLORIDE 107 mmol/L (98-107); CO2 30 mmol/L (21-32); CREATININE 0.7 mg/dL (0.55-1.3); GLUCOSE,RANDOM 120 mg/dL (74-106); POTASSIUM 4.1 mmol/L (3.5-5.1); SODIUM 145 mmol/L (136-145)
--- NOTE | 2018-08-30 23:20 | PDOC ---
History of Present Illness - General Chief Complaint: Nausea/Vomiting Stated Complaint: Revisit, Lab Variance Time Seen by Provider: 08/30/18 23:13 - History of Present Illness Initial Comments: 08/30/18 23:17 48 yo F with h/o polysubstance abuse who p/w frontal headache. Patient reports 2 weeks of progressive, worsening, non positional, bifrontal, throbbing, headache with radiation to posterior scalp, and right ear. Endorses 2-3 episodes of non-bilious non bloody emesis, with no identifiable triggers or alleviators. Endorses decreased PO intake, and decreased appetite. Pain not relieved with extra strength Tylenol, or Excedrin. Denies photophobia, phonophobia, aura, convulsions, F/C, confusion, weakness, sensory change. Endorses neck tightness. Denies head trauma. H/o SANCHEZ disorder seen by neurology 1 -2 years ago, treated with Sumitriptan. SANCHEZ worse than past headaches. CTH (08/27) Right sphenoid sinus thickening, otherwise unremarkable. Patient denies palpitations, cough wheezing, leg pain/swelling, F,C, CP, SOB, urinary complaints, abdominal pain, diarrhea, constipation, hematuria, BPR, lightheadedness, weakness, sensory changes. PMHx: as noted above ROS: as noted Allergies: Celecoxib Past History - Past Medical History Allergies/Adverse Reactions: Allergies Allergy/AdvReac Type Severity Reaction Status Date / Time celecoxib [From Celebrex] Allergy Severe Hives Verified 08/30/18 20:16 Home Medications: Ambulatory Orders traZODone HCL [Desyrel -] 100 mg PO HS #30 tablet 06/29/18 Anemia: No Asthma: No Cancer: No Cardiac Disorders: No CVA: No COPD: No Dementia: No Diabetes: No GI Disorders: No Disorders: No HTN: No Hypercholesterolemia: No Kidney Stones: No Liver Disease: No Psychiatric Problems: Yes (anxiety,DEPRESSION) Seizures: No Thyroid Disease: No - Surgical History Abdominal Surgery: No Appendectomy: Yes (1999) Cardiac Surgery: No Cholecystectomy: No Lung Surgery: No Neurologic Surgery: No Orthopedic Surgery: No - Reproductive History PID: No - Immunization History Immunization Up to Date: Yes - Suicide/Smoking/Psychosocial Hx Smoking History: Never smoked Have you smoked in the past 12 months: Yes Number of Cigarettes Smoked Daily: 20 Cigars Per Day: 0 'Breaking Loose' booklet given: 06/24/18 Hx Alcohol Use: No Drug/Substance Use Hx: Yes Substance Use Type: Heroin, Tranquilizers Hx Substance Use Treatment: Yes ([facility] 02/11/18 to 02/13/18) Review of Systems - Review of Systems Comments:: 08/30/18 23:19 GENERAL/CONSTITUTIONAL: No fever or chills. No weakness. HEAD, EYES, EARS, NOSE AND THROAT: No change in vision. No ear pain or discharge. No sore throat. CARDIOVASCULAR: No chest pain or shortness of breath RESPIRATORY: No cough, wheezing, or hemoptysis. GASTROINTESTINAL:+ nausea, vomiting. No diarrhea or constipation. GENITOURINARY: No dysuria, frequency, or change in urination. MUSCULOSKELETAL: No joint or muscle swelling or pain. No neck or back pain. SKIN: No rash NEUROLOGIC: + headache. No vertigo, loss of consciousness, or change in strength/sensation. ENDOCRINE: No increased thirst. No abnormal weight change HEMATOLOGIC/LYMPHATIC: No anemia, easy bleeding, or history of blood clots. ALLERGIC/IMMUNOLOGIC: No hives or skin allergy. *Physical Exam - Vital Signs Last Vital Signs Temp Pulse Resp BP Pulse Ox 97.9 F 109 H 18 136/93 99 08/30/18 20:12 08/30/18 20:12 08/30/18 20:12 08/30/18 20:12 08/30/18 20:12 - Physical Exam Comments: 08/30/18 23:19 GENERAL: Awake, alert, and fully oriented, in no acute distress HEAD: No signs of trauma, normocephalic, atraumatic EYES: PERRLA, EOMI, sclera anicteric, conjunctiva clear ENT: + Frontal, sphenoid, and ethmoid sinus ttp. Auricles normal inspection, hearing grossly normal, nares patent, oropharynx clear without exudates. Moist mucosa NECK: Normal ROM, supple, no lymphadenopathy, JVD, or masses LUNGS: No distress, speaks full sentences, clear to auscultation bilaterally HEART: Regular rate and rhythm, normal S1 and S2, no murmurs, rubs or gallops, peripheral pulses normal and equal bilaterally. ABDOMEN: Soft, nontender, normoactive bowel sounds. No guarding, no rebound. No masses EXTREMITIES : Normal inspection, Normal range of motion, no edema. No clubbing or cyanosis. NEUROLOGICAL: Cranial nerves II through XII grossly intact. Normal speech, normal gait, no focal sensorimotor deficits SKIN: Warm, Dry, normal turgor, no rashes or lesions noted Moderate Sedation - Procedure Monitoring Vital Signs: Procedure Monitoring Vital Signs Temperature 97.9 F 08/30/18 20:12 Pulse Rate 109 H 08/30/18 20:12 Respiratory Rate 18 08/30/18 20:12 Blood Pressure 136/93 08/30/18 20:12 O2 Sat by Pulse Oximetry (%) 99 08/30/18 20:12 ED Treatment Course - LABORATORY CBC & Chemistry Diagram: 08/30/18 20:57 08/30/18 20:57 - ADDITIONAL ORDERS Additional order review: Laboratory Results 08/30/18 20:57 Sodium 145 Potassium 4.1 Chloride 107 Carbon Dioxide 30 Anion Gap 7 L BUN 8 Creatinine 0.7 Creat Clearance w eGFR > 60 Random Glucose 120 H Calcium 9.3 08/30/18 20:57 RBC 4.46 MCV 90.8 MCHC 33.9 RDW 13.5 MPV 8.6 Neutrophils % 56.2 Lymphocytes % 34.7 D Monocytes % 5.0 Eosinophils % 3.4 Basophils % 0.7 Medical Decision Making - Medical Decision Making 08/30/18 23:42 48 yo F with h/o polysubstance abuse who p/w bifrontal headache, and non bilious , non bloody emesis. HR 109, vitals otherwise wnl, AF, A&Ox3 + Frontal, sphenoid, and ethmoid sinus ttp. Absent neuro deficits or nuchal rigidity on physical exam. Likely tension type vs. migraine. Will consider SAH, meningitis, dural venous thrombosis, papilledema. Ed Course: 08/30/18 23:49 CBC, CMP Tylenol, Reglan, NS 08/31/18 00:40 CBC,CMP: Unremarkable Patient stable for d/c with return precautions. Advised to f/u with neurology. 08/31/18 00:52 Patient refused to acknowledge discharge instructions, and walked out without signing discharge instructions. Patient refused to acknowledge test results and discussion. *DC/Admit/Observation/Transfer Diagnosis at time of Disposition: Headache Qualifiers: Headache type: other headache syndrome Qualified Code(s): G44.89 - Other headache syndrome - Discharge Dispostion Disposition: HOME Condition at time of disposition: Good Decision to Admit order: No - Referrals Referrals: Hieu Koenig DO [Staff Physician] - - Patient Instructions Printed Discharge Instructions: DI for Headache Additional Instructions: Please return to the emergency department with any new or worsening symptoms or concerns. Please follow up with your primary care physician within 72 hours. Please follow up with neurology within 48 hours. - Post Discharge Activity - Attestations Physician Attestion: 08/30/18 23:20 I attest to the information provided in this note.
[2018-08-31] MEDS ORDERED: ACETAMINOPHEN 325 MG TABLET (FP) ONE (00:02)
[2018-08-31] MEDS ORDERED: METOCLOPRAMIDE HCL INJECTION 10 MG/2 ML VIAL ONE (00:02)
--- NOTE | 2018-08-31 00:44 | PDOC ---
Attending Attestation - ED Attending Attestation I have performed the following: I have examined & evaluated the patient, The case was reviewed & discussed with the resident, I agree w/resident's findings & plan - HPI HPI: 08/31/18 00:54 The patient is a 48 year old female, with a significant past medical history of polysubstance abuse, who presents to the emergency department with, 2 weeks of a headache. She describes her headache as worsening, throbbing, frontal headache with associated NBNB emesis. She was recently evaluated 08/27 for similar symptoms at which time she received a head CT. Allergies: Celecoxib <Elia De La Rosa - Last Filed: 08/31/18 00:54> - Resident Resident Name: Michael Huff - Physicial Exam PE: 08/31/18 04:27 Agree with resident exam - Medical Decision Making 08/31/18 04:28 Patient refused further care at this time She requested IV be removed and left the emergency department She did agree to take her discharge papers but would not reviewed them with staff or side Impression cephalgia likely due to sinus disease <Mila Berg - Last Filed: 08/31/18 04:29> Attestations - Attestations 08/31/18 00:54 Documentation prepared by Elia De La Rosa, acting as emergency medical technician for Mila Berg DO. <Elia De La Rosa - Last Filed: 08/31/18 00:54>
== END 2018-08-31 01:10 | disposition home or self-care (01) ==
LOC: JER 20:07
PROC: 3E033GC Introduction of Other Therapeutic Substance into Peripheral Vein, Percutaneous Approach (ICD-10-PCS; principal; 2018-08-30)
PROC: 3E0337Z Introduction of Electrolytic and Water Balance Substance into Peripheral Vein, Percutaneous Approach (ICD-10-PCS; 2018-08-30)
DX: R51 Headache (principal); F19.10 Other psychoactive substance abuse, uncomplicated
CPT/HCPCS: 36415; 80048; 85025; 99282-25; J7030

== ENCOUNTER 2021-10-01 10:08 | Inpatient (IN) | payer OTHER ==
[2021-10-01] MEDS ORDERED: MAGNESIUM HYDROX 2400MG/30ML ORAL SUSPENSION 30 ML CUP PO PRN (14:41)
[2021-10-01] MEDS ORDERED: cloNIDine HCL 0.1 MG TABLET PO PRN (14:41)
[2021-10-01] MEDS ORDERED: ACETAMINOPHEN 325 MG TABLET (FP) PO PRN ×2 (14:41)
[2021-10-01] MEDS ORDERED: LOPERAMIDE HCL 2 MG CAPSULE PO PRN (14:41)
[2021-10-01] MEDS ORDERED: BISMUTH SUBSALICYLATE 262 MG/15 ML BTL PO PRN (14:41)
[2021-10-01] MEDS ORDERED: ONDANSETRON *ODT* 4 MG TABLET SL PRN (14:41)
[2021-10-01] MEDS ORDERED: MENTHOL/PHENOL 1 EACH UD MM PRN (14:41)
[2021-10-01] MEDS ORDERED: NICOTINE 10 MG CARTRIDGE (INHALER) IH PRN (14:41)
[2021-10-01] MEDS ORDERED: IBUPROFEN 400 MG TABLET (FP) PO PRN (14:41)
[2021-10-01] MEDS ORDERED: MAGNESIUM CITRATE 300 ML BOTTLE PO PRN (14:41)
[2021-10-01] MEDS ORDERED: diazePAM 5 MG TABLET PO PRN (14:41)
[2021-10-01] MEDS ORDERED: MAG HYDROX/AL HYDROX/SIMETH 30 ML UNIT-DOSE CUP PO PRN (14:41)
[2021-10-01] MEDS ORDERED: methaDONE HCL 10 MG TABLET (FOR DETOX USE ONLY) PO ONE (15:00)
[2021-10-01 15:45] VITALS: BMI 31.1
[2021-10-01] MEDS ORDERED: diazePAM 5 MG TABLET PO SCH (17:00)
[2021-10-01] MEDS ORDERED: BUPRENORPHINE HCL 150 MCG, BUPRENORPHINE HCL 75 MCG BC ONE (19:34)
[2021-10-01] MEDS ORDERED: cloNIDine HCL 0.1 MG TABLET PO ONE (19:34)
[2021-10-01] MEDS ORDERED: BUPRENORPHINE HCL 150 MCG FILM BC ONE (20:28)
[2021-10-01] MEDS ORDERED: BUPRENORPHINE HCL 75 MCG FILM BC ONE (20:28)
[2021-10-01] MEDS: hydrOXYzine PAMOATE 25 MG CAPSULE (FP) PO SCH ×2 (20:37→23:11)
[2021-10-01] MEDS ORDERED: MELATONIN 5 MG TABLETS PO SCH (22:00)
[2021-10-01] MEDS: diazePAM 5 MG TABLET PO PRN (23:10)
[2021-10-01] MEDS: THIAMINE HCL 100 MG TABLET (FP) PO SCH (23:12)
[2021-10-02] MEDS ORDERED: BUPRENORPHINE HCL 150 MCG FILM BC ONE ×2 (04:23→17:49)
[2021-10-02] MEDS ORDERED: BUPRENORPHINE HCL 75 MCG FILM BC ONE ×2 (04:23→17:49)
[2021-10-02] MEDS: hydrOXYzine PAMOATE 25 MG CAPSULE (FP) PO SCH ×5 (06:24→21:35)
[2021-10-02] MEDS: BUPRENORPHINE HCL 150 MCG, BUPRENORPHINE HCL 75 MCG BC SCH ×2 (06:25→18:14)
[2021-10-02] MEDS: cloNIDine HCL 0.1 MG TABLET PO PRN (07:40)
[2021-10-02] MEDS: METHOCARBAMOL 500 MG TABLET PO PRN (08:35)
[2021-10-02] MEDS: diazePAM 5 MG TABLET PO PRN ×2 (08:36→22:39)
[2021-10-02] MEDS: PRENATAL VITAMINS W/ FOLIC ACID TABLET (FP) PO SCH (10:40)
[2021-10-02 12:33] LABS: HEMOGLOBIN 15.1 GM/dL (10.7-15.3); MCH 29.1 pg (25.7-33.7); MCHC 33.6 g/dl (32.0-36.0); MEAN CELL VOLUME 86.5 fl (80-96); MEAN PLT VOLUME 8.7 fl (7.5-11.1); PLATELET COUNT 293 10^3/uL (134-434); RDW 14.1 % (11.6-15.6); WHITE BLOOD COUNT 10.7 K/mm3 (4.0-10.0)
[2021-10-02 12:40] LABS: ALBUMIN 4.4 g/dl (3.4-5.0); BLOOD UREA NITROGEN 12.6 mg/dL (7-18); CALCIUM 9.7 mg/dL (8.5-10.1)
[2021-10-02 12:43] LABS: CREATININE 0.8 mg/dL (0.55-1.3)
[2021-10-02 12:45] LABS: BILIRUBIN,TOTAL 0.7 mg/dL (0.2-1); TOT PROT 8.2 g/dl (6.4-8.2)
[2021-10-02] MEDS: SUVOREXANT 10 MG TABLET PO PRN (21:34)
[2021-10-02] MEDS: THIAMINE HCL 100 MG TABLET (FP) PO SCH (21:35)
[2021-10-03] MEDS ORDERED: diazePAM 5 MG TABLET PO SCH (06:00)
[2021-10-03] MEDS: hydrOXYzine PAMOATE 25 MG CAPSULE (FP) PO SCH ×5 (06:01→23:19)
[2021-10-03] MEDS: BUPRENORPHINE HCL 450 MCG FILM BC SCH ×2 (06:01→18:51)
[2021-10-03] MEDS ORDERED: methaDONE HCL 10 MG TABLET (FOR DETOX USE ONLY) PO ONE (10:00)
[2021-10-03] MEDS: METHOCARBAMOL 500 MG TABLET PO PRN (11:29)
[2021-10-03] MEDS: PRENATAL VITAMINS W/ FOLIC ACID TABLET (FP) PO SCH (11:29)
[2021-10-03] MEDS: diazePAM 5 MG TABLET PO PRN ×2 (11:35→23:19)
[2021-10-03 16:11] LABS: SARS-CoV-2 NAA Not Detected (Not Detected)
[2021-10-03] MEDS: THIAMINE HCL 100 MG TABLET (FP) PO SCH (23:19)
[2021-10-03] MEDS: SUVOREXANT 10 MG TABLET PO PRN (23:22)
[2021-10-04] MEDS ORDERED: diazePAM 5 MG TABLET PO SCH (06:00)
[2021-10-04] MEDS: hydrOXYzine PAMOATE 25 MG CAPSULE (FP) PO SCH ×5 (06:15→23:11)
[2021-10-04] MEDS: BUPRENORPHINE/NALOXONE 4 MG/1 MG FILM PACKET SL SCH ×2 (06:15→18:40)
[2021-10-04] MEDS: PRENATAL VITAMINS W/ FOLIC ACID TABLET (FP) PO SCH (11:18)
[2021-10-04] MEDS: METHOCARBAMOL 500 MG TABLET PO PRN ×2 (11:18→18:40)
[2021-10-04] MEDS ORDERED: TRIMETHOBENZAMIDE HCL 200MG/2ML INJ IM PRN (17:04)
[2021-10-04] MEDS: cloNIDine HCL 0.1 MG TABLET PO PRN ×2 (18:41→23:13)
[2021-10-04] MEDS: THIAMINE HCL 100 MG TABLET (FP) PO SCH (23:11)
[2021-10-04] MEDS: SUVOREXANT 10 MG TABLET PO PRN (23:13)
[2021-10-05] MEDS ORDERED: diazePAM 5 MG TABLET PO ONE (06:00)
[2021-10-05] MEDS ORDERED: BUPRENORPHINE/NALOXONE 8 MG/2 MG FILM PACKET SL ONE (06:00)
[2021-10-05] MEDS: hydrOXYzine PAMOATE 25 MG CAPSULE (FP) PO SCH ×4 (06:26→18:13)
[2021-10-05] MEDS ORDERED: methaDONE HCL 10 MG TABLET (FOR DETOX USE ONLY) PO ONE (10:00)
[2021-10-05] MEDS: METHOCARBAMOL 500 MG TABLET PO PRN (10:41)
[2021-10-05] MEDS ORDERED: ONDANSETRON *ODT* 4 MG TABLET SL ONE (10:45)
[2021-10-05] MEDS ORDERED: DICYCLOMINE HCL 10 MG CAPSULE PO ONE (10:45)
[2021-10-05] MEDS: PRENATAL VITAMINS W/ FOLIC ACID TABLET (FP) PO SCH (11:17)
[2021-10-05 18:05] VITALS: BP 101/67; PULSE 68; TEMP 98.2
[2021-10-06] MEDS ORDERED: traZODone HCL 50 MG TABLET (FP) PO ONE (00:40)
== END 2021-10-05 20:48 | disposition other institution (70) | DRG 773 ==
LOC: YASAS 10:08 → Y6N 17:01
PROVIDERS: ADMIT Allergy & Immunology; ATTEND Allergy & Immunology
PROC: HZ2ZZZZ Detoxification Services for Substance Abuse Treatment (ICD-10-PCS; principal; 2021-10-01)
DX: F11.23 Opioid dependence with withdrawal (principal); F13.20 Sedative, hypnotic or anxiolytic dependence, uncomplicated; F12.20 Cannabis dependence, uncomplicated; F17.213 Nicotine dependence, cigarettes, with withdrawal; F19.282 Other psychoactive substance dependence with psychoactive substance-induced sleep disorder; F19.24 Other psychoactive substance dependence with psychoactive substance-induced mood disorder; F39 Unspecified mood [affective] disorder; F43.10 Post-traumatic stress disorder, unspecified; F41.8 Other specified anxiety disorders; F32.A Depression, unspecified; E66.9 Obesity, unspecified; Z68.31 Body mass index [BMI] 31.0-31.9, adult; Z87.442 Personal history of urinary calculi; Z88.8 Allergy status to other drugs, medicaments and biological substances
CPT/HCPCS: 36415; 80053; 81025; 82962; 85027; 86780; 87811; 93005; 93010; 99281-25; C9803; J0735; Q0162; U0003; U0005

== ENCOUNTER 2021-10-05 15:15 | Inpatient (IN) | payer OTHER ==
[2021-10-05] MEDS ORDERED: ACETAMINOPHEN 325 MG TABLET (FP) PO PRN (15:28)
[2021-10-05] MEDS ORDERED: MAG HYDROX/AL HYDROX/SIMETH 30 ML UNIT-DOSE CUP PO PRN (15:28)
[2021-10-05] MEDS ORDERED: IBUPROFEN 400 MG TABLET (FP) PO PRN (15:28)
[2021-10-05] MEDS ORDERED: LOPERAMIDE HCL 2 MG CAPSULE PO PRN (15:28)
[2021-10-05] MEDS ORDERED: P-EPHED 60MG/TRIPROLIDI 2.5MG TABLET PO PRN (15:28)
[2021-10-05] MEDS ORDERED: guaiFENesin 200 MG/10 ML 10 ML UNIT-DOSE CUPS PO PRN (15:28)
[2021-10-05] MEDS ORDERED: MAGNESIUM CITRATE 300 ML BOTTLE PO PRN (15:28)
[2021-10-05] MEDS ORDERED: NICOTINE 10 MG CARTRIDGE (INHALER) IH PRN (15:28)
[2021-10-05] MEDS ORDERED: MAGNESIUM HYDROX 2400MG/30ML ORAL SUSPENSION 30 ML CUP PO PRN (15:28)
[2021-10-05] MEDS: BUPRENORPHINE/NALOXONE 8 MG/2 MG FILM PACKET SL SCH (21:41)
[2021-10-05] MEDS: MELATONIN 5 MG TABLETS PO SCH (21:41)
[2021-10-05] MEDS: hydrOXYzine PAMOATE 25 MG CAPSULE (FP) PO SCH ×2 (21:41→23:57)
[2021-10-05] MEDS: THIAMINE HCL 100 MG TABLET (FP) PO SCH (21:41)
[2021-10-06] MEDS: hydrOXYzine PAMOATE 25 MG CAPSULE (FP) PO SCH ×5 (06:31→22:19)
[2021-10-06] MEDS: PRENATAL VITAMINS W/ FOLIC ACID TABLET (FP) PO SCH (09:48)
[2021-10-06] MEDS: BUPRENORPHINE/NALOXONE 8 MG/2 MG FILM PACKET SL SCH ×2 (09:49→22:19)
[2021-10-06] MEDS ORDERED: NICOTINE 7 MG/24 HOURS TOPICAL PATCH TD SCH (10:00)
[2021-10-06] MEDS: THIAMINE HCL 100 MG TABLET (FP) PO SCH (22:19)
[2021-10-06] MEDS: MELATONIN 5 MG TABLETS PO SCH (22:19)
[2021-10-07] MEDS: hydrOXYzine PAMOATE 25 MG CAPSULE (FP) PO SCH ×5 (06:20→21:47)
[2021-10-07] MEDS: BUPRENORPHINE/NALOXONE 8 MG/2 MG FILM PACKET SL SCH ×2 (10:28→21:47)
[2021-10-07] MEDS: PRENATAL VITAMINS W/ FOLIC ACID TABLET (FP) PO SCH (10:28)
[2021-10-07] MEDS: THIAMINE HCL 100 MG TABLET (FP) PO SCH (21:47)
[2021-10-07] MEDS: SUVOREXANT 10 MG TABLET PO PRN (21:47)
[2021-10-07] MEDS: MELATONIN 5 MG TABLETS PO SCH (21:48)
[2021-10-08] MEDS: hydrOXYzine PAMOATE 25 MG CAPSULE (FP) PO SCH ×2 (06:32→10:10)
[2021-10-08] MEDS: BUPRENORPHINE/NALOXONE 8 MG/2 MG FILM PACKET SL SCH ×2 (10:11→21:37)
[2021-10-08] MEDS: PRENATAL VITAMINS W/ FOLIC ACID TABLET (FP) PO SCH (10:11)
[2021-10-08] MEDS: THIAMINE HCL 100 MG TABLET (FP) PO SCH (21:37)
[2021-10-08] MEDS: MELATONIN 5 MG TABLETS PO SCH (21:37)
[2021-10-08] MEDS: hydrOXYzine PAMOATE 25 MG CAPSULE (FP) PO PRN (21:37)
[2021-10-08] MEDS: SUVOREXANT 10 MG TABLET PO PRN (21:57)
[2021-10-09] MEDS: PRENATAL VITAMINS W/ FOLIC ACID TABLET (FP) PO SCH (10:49)
[2021-10-09] MEDS: BUPRENORPHINE/NALOXONE 8 MG/2 MG FILM PACKET SL SCH ×2 (10:49→21:55)
[2021-10-09 18:07] LABS: SARS-CoV-2 NAA Not Detected (Not Detected)
[2021-10-09] MEDS: hydrOXYzine PAMOATE 25 MG CAPSULE (FP) PO PRN (21:54)
[2021-10-09] MEDS: THIAMINE HCL 100 MG TABLET (FP) PO SCH (21:54)
[2021-10-09] MEDS: SUVOREXANT 10 MG TABLET PO PRN (21:54)
[2021-10-09] MEDS: MELATONIN 5 MG TABLETS PO SCH (21:55)
[2021-10-10 08:37] VITALS: TEMP 97.3
[2021-10-10] MEDS: PRENATAL VITAMINS W/ FOLIC ACID TABLET (FP) PO SCH (09:48)
[2021-10-10] MEDS: BUPRENORPHINE/NALOXONE 8 MG/2 MG FILM PACKET SL SCH ×2 (09:48→22:14)
[2021-10-10] MEDS ORDERED: SUVOREXANT 10 MG TABLET PO PRN (22:00)
[2021-10-10] MEDS: MELATONIN 5 MG TABLETS PO SCH (22:10)
[2021-10-10] MEDS: THIAMINE HCL 100 MG TABLET (FP) PO SCH (22:14)
[2021-10-11] MEDS: PRENATAL VITAMINS W/ FOLIC ACID TABLET (FP) PO SCH (10:15)
[2021-10-11] MEDS: BUPRENORPHINE/NALOXONE 8 MG/2 MG FILM PACKET SL SCH (10:15)
[2021-10-11 18:42] VITALS: BP 136/90; PULSE 122
== END 2021-10-11 18:53 | disposition left against medical advice (07) | DRG 770 ==
LOC: YASAS 15:15 → UNDOADMIN 15:17 → Y5N 15:17
PROVIDERS: ADMIT Allergy & Immunology; ATTEND Allergy & Immunology
PROC: HZ42ZZZ Group Counseling for Substance Abuse Treatment, Cognitive-Behavioral (ICD-10-PCS; principal; 2021-10-05)
DX: F11.20 Opioid dependence, uncomplicated (principal); F14.20 Cocaine dependence, uncomplicated; F13.20 Sedative, hypnotic or anxiolytic dependence, uncomplicated; F12.20 Cannabis dependence, uncomplicated; F17.210 Nicotine dependence, cigarettes, uncomplicated; F19.282 Other psychoactive substance dependence with psychoactive substance-induced sleep disorder; G43.909 Migraine, unspecified, not intractable, without status migrainosus; Z62.810 Personal history of physical and sexual abuse in childhood; Z91.410 Personal history of adult physical and sexual abuse; Z88.8 Allergy status to other drugs, medicaments and biological substances
CPT/HCPCS: C9803; U0003; U0005

== ENCOUNTER 2023-06-02 16:14 | Inpatient (IN) | payer OTHER ==
[2023-06-02 17:34] VITALS: BMI 39.4
[2023-06-02] MEDS ORDERED: guaiFENesin 600 MG TABLET.ER (FP) PO PRN (18:32)
[2023-06-02] MEDS ORDERED: BENZOCAINE/MENTHOL (CHLORASEPTIC ) LOZENGE MM PRN (18:32)
[2023-06-02] MEDS ORDERED: DICYCLOMINE HCL 10 MG CAPSULE PO PRN (18:32)
[2023-06-02] MEDS ORDERED: IBUPROFEN 600 MG TABLET (FP) PO PRN (18:32)
[2023-06-02] MEDS ORDERED: methaDONE HCL 10 MG TABLET (FOR DETOX USE ONLY) PO ONE (18:32)
[2023-06-02] MEDS ORDERED: ACETAMINOPHEN 325 MG TABLET (FP) PO PRN (18:32)
[2023-06-02] MEDS ORDERED: IBUPROFEN 400 MG TABLET (FP) PO PRN (18:32)
[2023-06-02] MEDS ORDERED: cloNIDine HCL 0.1 MG TABLET PO PRN (18:32)
[2023-06-02] MEDS ORDERED: METHOCARBAMOL 500 MG TABLET PO PRN (18:32)
[2023-06-02] MEDS ORDERED: MAGNESIUM HYDROX 2400MG/30ML ORAL SUSPENSION 30 ML CUP PO PRN (18:32)
[2023-06-02] MEDS ORDERED: BISMUTH SUBSALICYLATE 524 MG/30 ML PO PRN (18:32)
[2023-06-02] MEDS ORDERED: LOPERAMIDE HCL 2 MG CAPSULE PO PRN (18:32)
[2023-06-02] MEDS ORDERED: NALOXONE HCL 0.4 MG/ML VIAL IM PRN (18:32)
[2023-06-02] MEDS ORDERED: ONDANSETRON *ODT* 4 MG TABLET SL PRN (18:32)
[2023-06-02] MEDS ORDERED: NALOXONE HCL (KLOXXADO) 8 MG SPRAY NS PRN (18:32)
[2023-06-02] MEDS ORDERED: BENZONATATE 200 MG CAPSULE PO PRN (18:32)
[2023-06-02] MEDS ORDERED: MAG HYDROX/AL HYDROX/SIMETH 30 ML UNIT-DOSE CUP PO PRN (18:32)
[2023-06-02] MEDS ORDERED: POLYETHYLENE GLYCOL (HEALTHYLAX) 3350 17 GM PACKET PO PRN (18:32)
[2023-06-02] MEDS ORDERED: hydrOXYzine PAMOATE 25 MG CAPSULE (FP) PO PRN (18:32)
[2023-06-02] MEDS ORDERED: methaDONE HCL 10 MG TABLET (FOR DETOX USE ONLY) ONE (19:14)
[2023-06-02] MEDS: MELATONIN 5 MG TABLETS PO SCH (22:17)
[2023-06-02] MEDS: THIAMINE HCL 100 MG TABLET (FP) PO SCH (22:17)
[2023-06-02] MEDS: METHOCARBAMOL 500 MG TABLET PO PRN (22:18)
[2023-06-02] MEDS: diazePAM 5 MG TABLET PO SCH (22:19)
[2023-06-02 23:42] LABS: EPI CELLS >36 /uL (0-25.1); HYALINE CASTS 4 /uL (0-3.1); URINE APPEARANCE TURBID; URINE BACTERIA 2028 /uL (0-1359); URINE BILIRUBIN NEGATIVE (NEGATIVE); URINE COLOR DK YELLOW; URINE GLUCOSE (UA) NEGATIVE (NEGATIVE); URINE KETONE TRACE (NEGATIVE); URINE LEUK ESTERASE NEGATIVE (NEGATIVE); URINE NITRITE NEGATIVE (NEGATIVE); URINE PROTEIN 1+ (NEGATIVE); URINE WBC 9 /uL (0-25.8)
[2023-06-02 23:46] LABS: URINE RBC 37.8 /uL (0-23.9)
[2023-06-03] MEDS: diazePAM 5 MG TABLET PO SCH ×4 (05:48→22:17)
[2023-06-03] MEDS: PRENATAL VITAMINS W/ FOLIC ACID TABLET (FP) PO SCH (10:27)
[2023-06-03 12:17] LABS: CHLORIDE 100 mmol/L (98-107); POTASSIUM 4.1 mmol/L (3.5-5.1); SODIUM 137 mmol/L (136-145)
[2023-06-03 12:20] LABS: HEMATOCRIT 42.1 % (32.4-45.2); HEMOGLOBIN 13.6 GM/dL (10.7-15.3); MCH 28.6 pg (25.7-33.7); MCHC 32.4 g/dl (32.0-36.0); MEAN CELL VOLUME 88.5 fl (80-96); MEAN PLT VOLUME 8.3 fl (7.5-11.1); PLATELET COUNT 336 10^3/uL (134-434); RBC 4.76 M/mm3 (3.60-5.2); RDW 14.4 % (11.6-15.6); WHITE BLOOD COUNT 13.1 K/mm3 (4.0-10.0)
[2023-06-03 12:24] LABS: ALBUMIN 3.6 g/dl (3.4-5.0); ANION GAP 6 mmol/L (4-13); BLOOD UREA NITROGEN 19.2 mg/dL (7-18); CALCIUM 9.6 mg/dL (8.5-10.1); CO2 31 mmol/L (21-32); GLUCOSE,RANDOM 111 mg/dL (74-106)
[2023-06-03 12:27] LABS: CREATININE 0.8 mg/dL (0.55-1.3); SGPT/ALT 19 U/L (13-61)
[2023-06-03 12:28] LABS: BILIRUBIN,TOTAL 0.7 mg/dL (0.2-1)
[2023-06-03 12:29] LABS: TOT PROT 6.9 g/dl (6.4-8.2)
[2023-06-03 12:30] LABS: ALK PHOS 91 U/L (45-117)
[2023-06-03 12:33] LABS: SGOT/AST 12 U/L (15-37)
[2023-06-03] MEDS: THIAMINE HCL 100 MG TABLET (FP) PO SCH (22:17)
[2023-06-03] MEDS: traZODone HCL 50 MG TABLET (FP) PO SCH (22:17)
[2023-06-03] MEDS: MELATONIN 5 MG TABLETS PO SCH (22:17)
[2023-06-04] MEDS: diazePAM 5 MG TABLET PO PRN ×2 (01:29→20:41)
[2023-06-04] MEDS: diazePAM 5 MG TABLET PO SCH ×3 (05:48→22:39)
[2023-06-04 06:33] VITALS: RESP 18
[2023-06-04] MEDS: PRENATAL VITAMINS W/ FOLIC ACID TABLET (FP) PO SCH (09:23)
[2023-06-04] MEDS: METHOCARBAMOL 500 MG TABLET PO PRN ×2 (09:24→19:28)
[2023-06-04] MEDS ORDERED: methaDONE HCL 10 MG TABLET (FOR DETOX USE ONLY) PO ONE (10:00)
[2023-06-04] MEDS: MELATONIN 5 MG TABLETS PO SCH (21:36)
[2023-06-04] MEDS: traZODone HCL 50 MG TABLET (FP) PO SCH (21:36)
[2023-06-04] MEDS: THIAMINE HCL 100 MG TABLET (FP) PO SCH (21:36)
[2023-06-05] MEDS: diazePAM 5 MG TABLET PO SCH ×2 (06:00→17:03)
[2023-06-05] MEDS: PRENATAL VITAMINS W/ FOLIC ACID TABLET (FP) PO SCH (10:45)
[2023-06-05 17:39] VITALS: TEMP 98.1
[2023-06-05 17:44] VITALS: BP 142/68; PULSE 81
[2023-06-05] MEDS: MELATONIN 5 MG TABLETS PO SCH (22:55)
[2023-06-05] MEDS: traZODone HCL 50 MG TABLET (FP) PO SCH (22:55)
[2023-06-05] MEDS: THIAMINE HCL 100 MG TABLET (FP) PO SCH (22:55)
[2023-06-06] MEDS ORDERED: diazePAM 5 MG TABLET PO ONE (06:00)
[2023-06-06] MEDS ORDERED: methaDONE HCL 10 MG TABLET (FOR DETOX USE ONLY) PO ONE (10:00)
== END 2023-06-05 18:27 | DRG 773 ==
LOC: YASAS 16:14 → Y3N 19:22
PROVIDERS: ADMIT Allergy & Immunology; ATTEND Surgery
PROC: HZ2ZZZZ Detoxification Services for Substance Abuse Treatment (ICD-10-PCS; principal; 2023-06-02)
DX: F11.23 Opioid dependence with withdrawal (principal); F10.230 Alcohol dependence with withdrawal, uncomplicated; F13.20 Sedative, hypnotic or anxiolytic dependence, uncomplicated; F12.20 Cannabis dependence, uncomplicated; F17.210 Nicotine dependence, cigarettes, uncomplicated; F31.9 Bipolar disorder, unspecified; F19.24 Other psychoactive substance dependence with psychoactive substance-induced mood disorder; G47.00 Insomnia, unspecified; R45.851 Suicidal ideations; Z62.810 Personal history of physical and sexual abuse in childhood; Z91.410 Personal history of adult physical and sexual abuse; Z91.148 Patient's other noncompliance with medication regimen for other reason; Z88.8 Allergy status to other drugs, medicaments and biological substances
CPT/HCPCS: 36415; 80053; 80305; 80307; 81003; 81025; 85027; 86780; 87635; 87811

== ENCOUNTER 2024-11-01 16:46 | Emergency (ER) | payer OTHER ==
[2024-11-01 16:54] VITALS: TEMP 98.6; BMI 32.9
[2024-11-01] MEDS ORDERED: hydrOXYzine PAMOATE 50 MG CAPSULE (FP) ONE (18:17)
[2024-11-01] MEDS: hydrOXYzine HCL 50 MG TABLET PO ONE (18:27)
[2024-11-01 19:21] LABS: ABSOLUTE IMMATURE GRANULOCYTES 0.05 x10^3/uL (0.0-0.031); BASOPHILS # 0.07 x10^3/uL (0.01-0.08); EOSINOPHIL % 1.3 % (0.7-5.8); EOSINOPHILS # 0.15 x10^3/uL (0.04-0.36); HEMATOCRIT 45.9 % (34.1-44.9); HEMOGLOBIN 14.8 g/dL (11.2-15.7); MCHC 32.2 g/dl (32.2-35.5); MEAN PLT VOLUME 10.4 fl (9.4-12.3); MONOCYTE # 0.58 x10^3/uL (0.24-0.86); PLATELET COUNT # 330 x10^3/uL (182-369); RDW 13.3 % (12.3-16.6)
[2024-11-01 19:36] LABS: POTASSIUM 4.5 mmol/L (3.5-5.1)
[2024-11-01 19:37] LABS: ALBUMIN 4.6 g/dl (3.4-5.0); CALCIUM 10.4 mg/dL (8.5-10.1)
[2024-11-01 19:38] LABS: BLOOD UREA NITROGEN 7.6 mg/dL (7-18); MAGNESIUM 2.2 mg/dL (1.8-2.4)
[2024-11-01 19:41] LABS: CREATININE 0.6 mg/dL (0.55-1.3)
[2024-11-01 19:42] LABS: BILIRUBIN,TOTAL 0.5 mg/dL (0.2-1)
[2024-11-01 20:31] LABS: HIV INTERPRETATION NEGATIVE (NEGATIVE)
[2024-11-01] MEDS ORDERED: LORazepam 2 MG/ML SDV VIAL ONE (21:56)
[2024-11-01 22:02] VITALS: BP 129/79; PULSE 89; RESP 17
== END 2024-11-01 22:56 | disposition home or self-care (01) ==
LOC: JER 16:46
PROC: 3E033GC Introduction of Other Therapeutic Substance into Peripheral Vein, Percutaneous Approach (ICD-10-PCS; principal; 2024-11-01)
DX: F41.0 Panic disorder [episodic paroxysmal anxiety] (principal); M79.652 Pain in left thigh; R07.9 Chest pain, unspecified
CPT/HCPCS: 36415; 71045-TC-FY; 80053; 83735; 84484; 84703; 85025; 86803; 87389; 93005; 93010; 99285-25